=== PATIENT | male | born 1975 | race Hispanic/Latino ===

== ENCOUNTER 2019-04-20 15:56 | Outpatient (CLI) | payer OTHER ==
--- NOTE | 2019-04-20 16:26 | RAD ---
Exam: 3 views lumbar spine HISTORY: Low back pain. COMPARISON: None FINDINGS: 5 lumbar type bodies. Lumbar spine vertebral body height is maintained. No fracture. Disc space heights are preserved. No spondylolisthesis or spondylolysis IMPRESSION: Unremarkable lumbar spine radiograph series
== END 2019-04-20 15:57 | disposition home or self-care (01) ==
LOC: RAD-FRANK 15:56
PROVIDERS: ATTEND Nurse Practitioner Family
DX: M54.5 Low back pain (principal)
CPT/HCPCS: 72100

== ENCOUNTER 2019-05-18 17:03 | Inpatient (IN) | payer SELFPAY ==
[~2019-05-18 17:03] MED LIST: Gadobenate Dimeglumine 529 MG/1 ML (20ML VIAL) ONE; ISOVUE-370 76%-LOCM 1 ML ONE
[2019-05-18 18:10] LABS: #Basophils 0.1 thou/uL (0.0-0.2); #Eosinphils 0.1 thou/uL (0.0-0.7); #Lymphocytes 3.5 thou/uL (1.20-3.40); #Neutrophils 7.5 thou/uL (1.40-6.50); %Lymphocytes 28.5 % (21.0-51.0); %Monocytes 8.4 % (0.0-10.0); %Neutrophils 61.1 % (42.0-75.0); Hemoglobin 13.1 g/dL (14.0-18.0); Mean Corpuscular HGB CONC 33.7 g/dL (32.0-36.0); Mean Corpuscular Hemoglobin 30.4 pg (27.0-31.0); Mean Corpuscular Volume 90.2 fL (78.0-98.0); Mean Platelet Volume 8.4 fL (7.4-10.4); Platelet Count 263 thou/uL (130-400); RBC Distribution Width 13.1 % (11.5-14.5); Red Blood Cell (RBC) Count 4.31 mill/uL (4.70-6.10); White Blood Cell (WBC) Count 12.2 thou/uL (4.8-10.8)
[2019-05-18 18:34] LABS: ALT (SGPT) 12 U/L (8-55); AST (SGOT) 20 U/L (5-34); Albumin 4.1 g/dL (3.5-5.0); Alkaline Phosphatase 80 U/L (40-150); Anion Gap 15 mmol/L (10-20); BUN (Urea Nitrogen) 18 mg/dL (8.9-20.6); Bilirubin, Total 0.4 mg/dL (0.2-1.2); Calc. Creatinine Clearance 0 mL/min (70-130); Calcium 10.3 mg/dL (7.8-10.44); Carbon Dioxide 27 mmol/L (22-29); Chloride 96 mmol/L (98-107); Estimated GFR-MDRD 55; Globulin 4.6 g/dL (2.4-3.5); Glucose 120 mg/dL (70-105); Potassium 4.8 mmol/L (3.5-5.1); Protein, Total 8.7 g/dL (6.0-8.3); Sodium 133 mmol/L (136-145)
[2019-05-18] MEDS ORDERED: Ondansetron PF 4 MG/2 ML Vial ONE (19:45)
[2019-05-18] MEDS ORDERED: Morphine 4 MG/ML VIAL ONE (19:45)
[2019-05-18] MEDS ORDERED: Lorazepam 1 MG TAB ONE (20:02)
[2019-05-18] MEDS ORDERED: Lorazepam 2 MG/ML VIAL ONE (20:56)
--- NOTE | 2019-05-18 22:11 | MRI ---
EXAM: MRI lumbar spine without and with contrast HISTORY: Right leg numbness. Evaluate for cauda equina syndrome. COMPARISON: None TECHNIQUE: Multiple planar multisequence MR images were obtained of the lumbar spine without and with contrast. FINDINGS: The vertebral bodies and intervertebral discs demonstrate normal height and alignment without fractur e or subluxation. There is a large mass involving the right aspect of the pelvis which is enhancing measuring at least 13.7 cm in greatest dimension. This mass appears to involve the sacrum and right iliac bone. This mass encases multiple right-sided sacral nerve roots. There appears to be moderate right hydronephros is and hydroureter. Foci of high T2 signal in the bilateral kidneys likely represent cysts. There is edema in the paraspinal muscles in the lower lumbar spine. Edema is also seen in the right gluteal musculature. No marrow signal abnormality is present in the lumbar spine. . The conus medullaris terminates normally at L1/2. T12/L1: No significant posterior bulge or protrusion. No posterior facet arthrosis. No central yosef l stenosis. No neural foraminal stenosis L1/2: No significant posterior bulge or protrusion. No posterior facet arthrosis. No central canal stenosis. No neural foraminal stenosis L2/3: No significant posterior bulge or protrusion. No posterior facet arthrosis. No central canal stenosis. No neural foraminal stenosis L3/4: No significant posterior bulge or protrusion. No posterior facet arthrosis. No central canal stenosis. No neural foraminal stenosis L4/5: No significant posterior bulge or protrusion. No posterior facet arthrosis. No central canal stenosis. No neural foraminal stenosis L5/S1: No significant posterior bulge or protrusion. No posterior facet arthrosis. No central canal stenosis. No neural foraminal stenosis IMPRESSION: Large pelvic mass involves the sacrum and right iliac bone and surrounds multiple right-sided nerve r oots. A CT of the abdomen and pelvis with contrast is recommended for better evaluation. This mass also appears to obstruct the right distal ureter with right-sided hydronephrosis.
--- NOTE | 2019-05-18 22:58 | CT ---
CT Abdomen Pelvis W Con: 05/18/2019 12:00 AM HISTORY: Right lower 70 swelling for 5 months. Incontinence of bowel and bladder. Large right pelvic mass seen on MRI. COMPARISON: MRI lumbar spine 05/18/2019 TECHNIQUE: Multiple contiguous axial images were obtained and a CT of the abdomen and pelvis without IV contrast . Oral contrast was administered. Coronal reformats were performed. FINDINGS: This examination is limited for the evaluation of solid organs and vascular structures due to the lac k of intravenous contrast. Lower Chest: There is a 2.6 cm cavitary mass in the right lower lobe of the lungs. Abdomen: Liver: There are hypodensities in the liver measuring up to 3.4 cm in size suspicious for metastases. Bile Ducts: Normal caliber. Gallbladder: No calcified gallstones. Normal caliber wall. Pancreas: within normal limits. Spleen: within normal limits. Adrenals: within normal limits. Kidneys: Moderate right hydronephrosis. There are bilateral renal cysts measuring up to 4.8 cm in siz e. Pelvis: There is a large mass in the right aspect of the pelvis measuring approximately 13.4 x 9.0 x 11.2 cm in size. This causes displacement of the urinary bladder to the left and is intimately associated with the right posterior lateral wall of the urinary bladder. This also causes displacement of the re ctum to the left. This mass causes erosion into the sacrum with effacement of multiple sacral alae on the right. This mass also appears to extend into the right iliac bone near the sacroiliac joint. Ureters: Moderate right hydroureter. The dilated ureter extends down to the pelvic mass. Bowel: Normal caliber. Mesenteric Lymph Nodes: No enlarged mesenteric lymph nodes. Peritoneum: No ascites or free air, no fluid collection. Vessels: Normal caliber aorta Retroperitoneum: within normal limits. Abdominal Wall: Multiple fat-containing ventral hernias. IMPRESSION: 1. Nonspecific right pelvic mass appears to invade into the sacrum and right iliac bone. There is malu arent metastatic disease to the liver. This mass causes obstruction of the distal right ureter with moderate right hydronephrosis. 2. Right lower lobe cavitary lung mass
[2019-05-19 01:47] LABS: Bilirubin Negative (Negative); Blood, Urine Negative (Negative); Clarity Clear (Clear); Glucose, Urine (Dipstick) 100 mg/dL (Negative); Leukocyte Negative Leu/uL (Negative); Nitrite Negative (Negative); Protein, Urine (Dipstick) 10 mg/dL (Neg-Trace); Urobilinogen Normal mg/dL (Less than 2)
[2019-05-19] MEDS ORDERED: Dextrose 5% in Water 1,000 ML IV PRN (04:49)
[2019-05-19] MEDS ORDERED: Dextrose 50% Abboject 50 ML SYRINGE SLOW IVP PRN (04:49)
[2019-05-19 05:09] VITALS: BMI 33.2
[2019-05-19] MEDS ORDERED: Acetaminophen 325 MG TAB PO PRN ×2 (05:48→12:40)
[2019-05-19] MEDS ORDERED: Ondansetron PF 4 MG/2 ML Vial IVP PRN ×2 (05:48→12:43)
[2019-05-19] MEDS ORDERED: HYDROcodone/Acetaminophen 5/325 mg Tablet PO PRN ×3 (05:48→12:41)
[2019-05-19] MEDS ORDERED: Ondansetron ODT 4 MG TAB SL PRN ×2 (05:48→12:42)
--- NOTE | 2019-05-19 06:00 | HP ---
CHIEF COMPLAINT: Difficulty with voiding and right lower extremity weakness. HISTORY OF PRESENT ILLNESS: The patient is a 44-year-old male with a history of what sounds like testicular cancer greater than 15 years ago. He was treated at [facility]. At that time, the patient underwent a large surgery with an incision extending from the xiphoid down to the pelvis. He also reported an orchiectomy. He presented to the emergency room today reporting pain that started about 5 months ago on his right buttocks and extending down his leg. He has had progression of that to the point where he no longer can move his right lower extremity except at the hip. He denies any numbness however. He also over the past 3 weeks has had difficulty with bowel and bladder incontinence and difficulty completely voiding. The patient does report about a 40-pound weight loss over the last 6 months or so, but he says he was diagnosed with diabetes and has changed his diet and believes the weight loss was more intentional than unintentional. REVIEW OF SYSTEMS: All systems reviewed, all pertinent positives and negatives noted in history of present illness. PAST MEDICAL HISTORY: Hypertension, diabetes, the above-mentioned testicular cancer with chemotherapy for 1 year. PAST SURGICAL HISTORY: Orchiectomy and some type of tumor debulking of the abdomen at [facility] greater than 15 years ago. FAMILY HISTORY: His father is alive and apparently well. His mother had some type of female cancer. SOCIAL HISTORY: The patient says he quit drinking 6 months ago when he was told he had diabetes. Without having any advice, he decided to start smoking about 3 weeks ago. Denies drugs. He is single. He is full code and his sister would be his surrogate decision maker. ALLERGIES: NONE. CURRENT MEDICATIONS: None. PHYSICAL EXAMINATION: VITAL SIGNS: Blood pressure 138/74, pulse 91, respirations 18, O2 saturation 98% on room air. GENERAL APPEARANCE: Age-appropriate male, he is in no distress. He is awake, alert, oriented, pleasant, cooperative. HEENT: PERRL. No OP lesions. TMs are normal. NECK: Supple and symmetric. No lymphadenopathy, JVD, or carotid bruits. HEART: Regular rate and rhythm without murmurs, gallops, or rubs. LUNGS: Clear to auscultation bilaterally. ABDOMEN: Well-healed midline incisional scar. Soft, nontender, and nondistended. Positive bowel sounds. EXTREMITIES: The patient has no cyanosis, clubbing, or edema. NEUROLOGIC: The patient has normal sensation in lower extremities. He has no ability to move his right toes, foot, ankle, or knee. He can flex the leg a bit at the hip. LABORATORY DATA: White count 12.2, hemoglobin 13.1, platelets 263. Sodium 133, potassium 4.8, chloride 96, CO2 27, BUN 18, creatinine 1.4, glucose 120, AST 20, ALT 12, serum protein is 8.7, albumin 4.1. MRI of the lumbar spine shows large pelvic mass involving the sacrum and right iliac bone and surrounding multiple right-sided nerve roots. CT abdomen and pelvis shows nonspecific right pelvic mass, which is large and invades into the sacrum and right iliac bone with apparent metastatic disease to the liver. The pelvic mass causes obstruction to the distal right ureter and moderate right hydronephrosis, and there is also a right lower lobe cavitary lung mass. IMPRESSION AND PLAN: 1. Pelvic mass, very suspicious for malignancy with likely metastases to the liver and lung in a patient with a prior history of what sounds like testicular cancer per the patient's report. We will need to obtain a biopsy somehow. The case was discussed with General Surgery and Neurosurgery in the Emergency Department and they did not feel there were specific needs for their intervention. The case will need to be discussed with Interventional Radiology to determine if they can obtain a biopsy. We will also go ahead and consult Oncology given his history in hopes that we can help sort out what his prior diagnoses were. 2. 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 3. Urinary incontinence and urinary retention. Yu catheter has been placed. We will leave that in for now. 4. Acute kidney injury. I do not have prior labs on this patient for comparison, but suspect his creatinine is elevated because of the hydroureter and the pelvic mass affecting ability to pass the urine. 5. Right hydroureter. The right ureter is completely encased in this tumor in the pelvis causing obstruction. 6. History of diabetes. We will continue Accu-Cheks and sliding scale insulin. Job ID: [id number]
[2019-05-19] MEDS ORDERED: Enoxaparin Sodium 40 MG/0.4 ML SYRINGE SC SCH (09:00)
[2019-05-19] MEDS: Sodium Chloride 0.9% 1,000 ML IV SCH (12:53)
[2019-05-19] MEDS: Morphine 4 MG/ML VIAL SLOW IVP PRN ×2 (12:54→21:20)
[2019-05-19 13:03] LABS: PTT 30.9 SEC (22.9-36.1); Prothrombin Time 13.6 SEC (12.0-14.7)
[2019-05-19] MEDS ORDERED: Midazolam HCl 2 mg/2 ml Vial ONE (13:08)
[2019-05-19] MEDS ORDERED: Sodium Bicarbonate 2.5 MEQ/5 ML VIAL ONE (13:08)
[2019-05-19] MEDS ORDERED: Fentanyl 100 MCG/2 ML VIAL ONE (13:08)
--- NOTE | 2019-05-19 15:46 | CT ---
PROCEDURE: CT GUIDED BIOPSY MASS RIGHT PELVIS 05/19/19 INDICATION: Large mass in the right pelvis identified on CT of 05/18/19. There is a prior history of testicular can cer in this patient. A percutaneous guided biopsy was requested for diagnosis. FINDINGS: Two separate 2.3 cm length 18 gauge core biopsy samples were obtained through the mass. The needle wa s positioned with CT guidance from an anterior approach. Pathologist was present at bed side and confirmed adequate tissue. PROCEDURE NOTE: Patient was placed supine on the CT table. Tomograms were obtained. An anterior approach was selected anterolateral aspect of the right pelvis. The skin entry site was marked. The area prepped and drape d in a sterile manner. Local anesthesia was administered with lidocaine. A 17 gauge guide needle wit h trocar in place was introduced under CT guidance. The needle was directed into the anterior margin of the mass as confirmed with CT. Trocar removed and 18 gauge biopsy gun attached. A 2.3 cm length co re tissue specimen was obtained and given to pathologist. A second 2.3 cm length specimen was obtaine d and placed in formalin. The needle was removed. Postprocedure CT showed no evidence of hematoma. The patient tolerated the pr ocedure well with no problems or complications. POS: OFF
[2019-05-19] MEDS: HYDROcodone/Acetaminophen 5/325 mg Tablet PO PRN (16:19)
--- NOTE | 2019-05-19 18:10 | PDOC.PN ---
- Subjective Encounter Start Date: 05/19/19 Encounter Start Time: 11:30 Subjective: pt up in bed no complains -: explained to pt about ct findings and possible diagnosis - Objective Resuscitation Status - Order Detail: 05/19/19 04:47 Resuscitation Status Routine Resuscitation Status: FULL: Full Resuscitation Vital Signs & Weight: Vital Signs (12 hours) Temp Pulse Resp BP Pulse Ox 05/19/19 15:28 98.3 F 73 16 131/86 99 05/19/19 11:10 98.2 F 75 16 125/80 98 05/19/19 07:51 97.9 F 72 16 130/86 98 Weight Weight 212 lb 1.355 oz I&O: 05/18/19 05/19/19 05/20/19 06:59 06:59 06:59 Intake Total 50 Output Total 800 Balance -750 Result Diagrams: 05/18/19 18:02 05/18/19 18:02 Additional Labs: Accuchecks 05/19/19 05/19/19 05/19/19 15:56 11:46 06:03 POC Glucose 121 H 115 H 181 H Phys Exam - Physical Examination Neck: no nodes, no JVD, supple, full ROM Respiratory: no wheezing, no rales, no rhonchi, wheezing present, clear to auscultation bilateral Cardiovascular: RRR, no significant murmur, no rub, gallop, irregular Gastrointestinal: soft, non-tender, no distention, positive bowel sounds weakness to his right lower ext Dx/Plan (1) Pelvic mass Code(s): R19.00 - INTRA-ABD AND PELVIC SWELLING, MASS AND LUMP, UNSP SITE Status: Acute (2) HIEU (acute kidney injury) Code(s): N17.9 - ACUTE KIDNEY FAILURE, UNSPECIFIED Status: Acute (3) Hydronephrosis of right kidney Code(s): N13.30 - UNSPECIFIED HYDRONEPHROSIS Status: Acute (4) Right leg weakness Code(s): R29.898 - OT SYMPTOMS AND SIGNS INVOLVING THE MUSCULOSKELETAL SYSTEM Status: Acute - Plan spoke to Ir for biopsy. pt continues to have pain to his right lower ext -: will consult urology. will also talk with oncology -: [facility] -: All of the ct findings were discussed with pt and sister * . Review of Systems - Review of Systems Respiratory: negative: Cough, Dry, Shortness of Breath, Hemoptysis, SOB with Excertion, Pleuritic Pain, Sputum, Wheezing Cardiovascular: negative: chest pain, palpitations, orthopnea, paroxysmal nocturnal dyspnea, edema, light headedness, other - Medications/Allergies Allergies/Adverse Reactions: Allergies Allergy/AdvReac Type Severity Reaction Status Date / Time No Known Drug Allergies Allergy Verified 05/19/19 05:45 Medications: Current Medications Acetaminophen (Tylenol) 650 mg PO Q4H PRN PRN Reason: Fever or Mild Pain Hydrocodone Bitart/Acetaminophen (Kremlin 5/325) 1 tab PO Q6H PRN PRN Reason: Pain (1-4) Hydrocodone Bitart/Acetaminophen (Kremlin 5/325) 2 tab PO Q6H PRN PRN Reason: Pain (5-8) Last Admin: 05/19/19 16:19 Dose: 2 tab Dextrose/Water (Dextrose 50%) 25 gm SLOW IVP PRN PRN PRN Reason: Hypoglycemia Glucagon (Glucagon) 1 mg IM PRN PRN PRN Reason: Hypoglycemia Heparin Sodium (Porcine) (Heparin) 5,000 units SC TID [facility] Stop: 05/20/19 23:59 Dextrose/Water (D5w) 1,000 mls @ 0 mls/hr IV .Q0M PRN PRN Reason: Hypoglycemia Sodium Chloride (Normal Saline 0.9%) 1,000 mls @ 75 mls/hr IV .[id number] [facility] Last Admin: 05/19/19 12:53 Dose: 1,000 mls Insulin Human Lispro (Humalog) 0 units SC .MILD SLIDING SCALE PRN PRN Reason: Mild Correctional Scale Morphine Sulfate (Morphine) 4 mg SLOW IVP Q6H PRN PRN Reason: Severe Breakthrough Pain (7-10 Last Admin: 05/19/19 12:54 Dose: 4 mg Ondansetron HCl (Zofran Odt) 4 mg SL Q6H PRN PRN Reason: Nausea/Vomiting Ondansetron HCl (Zofran) 4 mg IVP Q6H PRN PRN Reason: Nausea/Vomiting Polyethylene Glycol (Miralax) 17 gm PO DAILY PRN PRN Reason: Constipation Senna (Senokot) 2 tab PO DAILY PRN PRN Reason: Constipation Sodium Chloride (Flush - Normal Saline) 10 ml IVF PRN PRN PRN Reason: Saline Flush
--- NOTE | 2019-05-19 19:00 | CON ---
DATE OF CONSULTATION: 05/19/2019 CONSULTING: [facility]. CONSULTED: Dr. Syed. REASON FOR CONSULTATION: Hydronephrosis. HISTORY OF PRESENT ILLNESS: Mr. Acevedo is a 44-year-old male, who was admitted to the hospital due to leg and buttock pain on the right side. He states this pain has been going on for approximately 2 to 3 months now. He initially thought it was sciatica, but due to the pain being more in his buttock and thigh rather than in his back and with progressive worsening of symptoms along with worsening bladder symptoms, he came into the emergency room. He was noted to have a mass in his pelvis on CT scan with hydronephrosis on the right as well as multiple lesions throughout the abdomen and lung consistent with metastatic cancer. His history is significant for testicular cancer 18 years ago. He underwent a radical orchiectomy on the right in [place] by urologist, which he does not remember. He subsequently went down to [facility], where he underwent a retroperitoneal lymph node dissection via a median laparotomy. Postoperatively, he received approximately one year of chemotherapy, but apparently did not do any surveillance afterwards. He did not follow up at [facility] and did not seem to have any problems until recently. After being admitted with the current masses, he did undergo a soft tissue biopsy which was done in Interventional Radiology today. The results are currently still pending from this. On my discussion with the patient currently, he states that he has been having a lot of erratic urination. He has urgency and frequency and poor stream. He has not had any blood in his urine. He denies any flank pain, but has had significant leg pain. He is having difficulty with his bowel movements, but also has not eaten in 24 hours. He denies any fevers or chills. He states he has lost some weight. He denies any chest pain or shortness of breath. He denies any leg swelling. ALLERGIES: NONE. CURRENT HOME MEDICATIONS: None. PAST MEDICAL HISTORY: 1. Hypertension. 2. Diabetes. 3. Testicular cancer. PAST SURGICAL HISTORY: 1. Orchiectomy. 2. Retroperitoneal lymph node dissection in [facility]. FAMILY HISTORY: No significant history of genitourinary cancers. SOCIAL HISTORY: The patient drank alcohol significantly, but quit six months ago when he was found that he had diabetes. He recently started smoking tobacco. Denies illicit drug use. He is single, but stays with his sister, who is a surrogate decision maker. REVIEW OF SYSTEMS: A 12-point review of systems reviewed, otherwise negative other than what was commented on the HPI. PHYSICAL EXAMINATION: VITAL SIGNS: Temperature 98.3, pulse 73, respirations are 16, blood pressure 131/86, and saturation 99% on room air. GENERAL: No apparent distress, communicating, and alert, appears stated age, well nourished, well developed. HEENT: Normocephalic, atraumatic. Pupils are symmetric and round. Trachea midline. CARDIOVASCULAR: Regular rate and rhythm. Normal S1 and S2, symmetric pulses. CHEST: No increased work of breathing. Symmetric expansion. LUNGS: Clear anteriorly. ABDOMEN: Soft, nondistended. Mildly tender to palpation in the right lower quadrant. There is a palpable mass in the right lower quadrant. No obvious organomegaly. No hernias. A well-healed midline incision. GENITOURINARY: Yu catheter in place, draining clear yellow urine. Penis is otherwise nonfocal. Scrotum is nonfocal. EXTREMITIES: No clubbing, cyanosis, or edema. MUSCULOSKELETAL: No joint deformities or joint erythema noted. Decreased range of motion and weakness on the right leg. Left leg appears more normal. Upper extremities are otherwise normal. No inflammation in the hands. NEUROLOGIC: Cranial nerves 2 through 12 grossly intact. There is significant weakness and paresthesias of the right buttock and right leg. Remainder of neurological system is otherwise unremarkable. SKIN: Warm and dry. No rashes or lesions. Good turgor. LYMPHATIC: No palpable lymph nodes in the cervical, axillary, or inguinal regions. PSYCHIATRIC: Alert and oriented x3. Appropriate mood and affect. LABORATORY DATA: On laboratory evaluation, the full set of labs are in the [employer] system, which I have reviewed. Of note, the patient's white count is 12.2 with a hemoglobin of 13.1. INR is 1. Creatinine is 1.40 with a sodium of 133, glucose is 120. On CT done May 18, demonstrates nonspecific right pelvic mass which appears to invade into the sacrum and right iliac bone with possible nerve involvement. There is metastatic disease to the liver as well as a cavitary lung mass in the right lower lobe. There is moderate right hydronephrosis in which the distal ureter is completely encased in the mass. I have reviewed these images myself. ASSESSMENT AND PLAN: A 44-year-old male with multiple masses in the abdomen, liver, and in the lung consistent with likely metastatic disease. The cavitary lung lesion may be tuberculosis or another lesion or may be related to the metastatic cancer that is present. The highest likelihood is that he has had a recurrent testicular cancer, although other cancers are also possible. We are awaiting the soft tissue biopsy specimens to make final determination. I would recommend continuation of the Yu catheter given the patient's severe urinary symptoms and difficulty voiding. Regarding his hydronephrosis and his elevated creatinine, the patient will likely require chemotherapy for treatment of his cancer and I would recommend maximization of GFR. Given the complete encasement of the ureter, I do not think a ureteral stent will be successful in this patient. I would highly recommend a nephrostomy tube is the best option. I will have the patient obtain a right nephrostomy tube on Friday as tomorrow is May 20 and I do not feel that this is emergent. In addition, the patient is extremely high risk for DVT in the right leg. I would recommend that the patient start on heparin prophylaxis. With his creatinine normalized, he can be changed over to Lovenox. I will start heparin 5000 units subcu t.i.d. with instructions to hold the heparin prior to his nephrostomy tube placement. I will continue to follow along and make recommendations on this patient, but final determination will largely be based off the biopsy results. Long-term, the patient will likely need to go home with his Yu catheter and nephrostomy tube until he can start on chemotherapy. If there is sufficient shrinkage of the mass, he may be able to convert to ureteral stent or have the tubes taken out entirely. The urinary problems will probably self resolve once the pelvic mass shrinks sufficiently in size either in response to radiation or chemo depending on what type of tumor this is. Job ID: [id number]
[2019-05-19] MEDS: Heparin 5,000 UNITS/ML VIAL SC SCH (21:10)
[2019-05-19] MEDS: HumaLOG 300 UNITS/3 ML VIAL SC PRN (21:14)
[2019-05-20] MEDS: HYDROcodone/Acetaminophen 5/325 mg Tablet PO PRN ×4 (03:18→20:38)
[2019-05-20] MEDS: Sodium Chloride 0.9% 1,000 ML IV SCH ×2 (03:19→16:42)
[2019-05-20] MEDS: Morphine 4 MG/ML VIAL SLOW IVP PRN ×3 (04:23→18:02)
[2019-05-20 06:23] LABS: #Basophils 0.1 thou/uL (0.0-0.2); #Eosinphils 0.2 thou/uL (0.0-0.7); #Lymphocytes 2.1 thou/uL (1.20-3.40); #Monocytes 0.8 thou/uL (0.11-0.59); #Neutrophils 5.7 thou/uL (1.40-6.50); %Basophils 0.8 % (0.0-1.0); %Eosinophils 1.8 % (0.0-10.0); %Lymphocytes 23.5 % (21.0-51.0); %Monocytes 9.2 % (0.0-10.0); %Neutrophils 64.7 % (42.0-75.0); Hemoglobin 11.5 g/dL (14.0-18.0); Mean Corpuscular HGB CONC 32.3 g/dL (32.0-36.0); Mean Corpuscular Hemoglobin 29.6 pg (27.0-31.0); Mean Corpuscular Volume 91.6 fL (78.0-98.0); Mean Platelet Volume 8.8 fL (7.4-10.4); Platelet Count 218 thou/uL (130-400); RBC Distribution Width 13.2 % (11.5-14.5); White Blood Cell (WBC) Count 8.9 thou/uL (4.8-10.8)
[2019-05-20 06:36] LABS: Anion Gap 11 mmol/L (10-20); BUN (Urea Nitrogen) 13 mg/dL (8.9-20.6); Calc. Creatinine Clearance 122 mL/min (70-130); Calcium 9.7 mg/dL (7.8-10.44); Carbon Dioxide 30 mmol/L (22-29); Chloride 100 mmol/L (98-107); Estimated GFR-MDRD 78; Glucose 114 mg/dL (70-105); Potassium 4.1 mmol/L (3.5-5.1); Sodium 137 mmol/L (136-145)
[2019-05-20] MEDS: Polyethylene Glycol 3350 17 GM Packet PO PRN (08:55)
[2019-05-20] MEDS: Senokot 8.6 MG TAB PO PRN (08:55)
[2019-05-20] MEDS: Heparin 5,000 UNITS/ML VIAL SC SCH ×3 (08:56→20:40)
[2019-05-20] MEDS: HumaLOG 300 UNITS/3 ML VIAL SC PRN ×2 (12:12→22:16)
--- NOTE | 2019-05-20 17:02 | PDOC.PN ---
- Subjective Encounter Start Date: 05/20/19 Encounter Start Time: 10:30 Subjective: pt up in bed still has pain to his righ leg - Objective Resuscitation Status - Order Detail: 05/19/19 04:47 Resuscitation Status Routine Resuscitation Status: FULL: Full Resuscitation Vital Signs & Weight: Vital Signs (12 hours) Temp Pulse Resp BP BP Pulse Ox 05/20/19 15:58 98.1 F 71 16 144/80 H 97 05/20/19 10:51 97.6 F 80 16 155/82 H 98 05/20/19 07:39 98 F 73 16 132/79 98 Weight Weight 213 lb I&O: 05/19/19 05/20/19 05/21/19 06:59 06:59 06:59 Intake Total 50 2425 Output Total 800 1525 Balance -750 900 Result Diagrams: 05/20/19 05:53 05/20/19 05:53 Additional Labs: Accuchecks 05/20/19 05/20/19 05/20/19 15:58 10:52 05:22 POC Glucose 142 H 205 H 118 H 05/19/19 20:18 POC Glucose 217 H Phys Exam - Physical Examination Neck: no nodes, no JVD, supple, full ROM Respiratory: no wheezing, no rales, no rhonchi, wheezing present, clear to auscultation bilateral Cardiovascular: RRR, no significant murmur, no rub, gallop, irregular Gastrointestinal: soft, non-tender, no distention, positive bowel sounds right side lower ext weakness Dx/Plan (1) HIEU (acute kidney injury) Code(s): N17.9 - ACUTE KIDNEY FAILURE, UNSPECIFIED Status: Acute (2) Hydronephrosis of right kidney Code(s): N13.30 - UNSPECIFIED HYDRONEPHROSIS Status: Acute (3) Right leg weakness Code(s): R29.898 - OTH SYMPTOMS AND SIGNS INVOLVING THE MUSCULOSKELETAL SYSTEM Status: Acute (4) Pelvic mass Code(s): R19.00 - INTRA-ABD AND PELVIC SWELLING, MASS AND LUMP, UNSP SITE Status: Acute - Plan s/p pelvic mass biopsy -: will check AFP, ldh and beta hcg -: pt will get nephrostomy tube in am * . Review of Systems - Review of Systems Respiratory: negative: Cough, Dry, Shortness of Breath, Hemoptysis, SOB with Excertion, Pleuritic Pain, Sputum, Wheezing Cardiovascular: negative: chest pain, palpitations, orthopnea, paroxysmal nocturnal dyspnea, edema, light headedness, other - Medications/Allergies Allergies/Adverse Reactions: Allergies Allergy/AdvReac Type Severity Reaction Status Date / Time No Known Drug Allergies Allergy Verified 05/19/19 05:45 Medications: Current Medications Acetaminophen (Tylenol) 650 mg PO Q4H PRN PRN Reason: Fever or Mild Pain Hydrocodone Bitart/Acetaminophen ([place] 5/325) 1 tab PO Q6H PRN PRN Reason: Pain (1-4) Hydrocodone Bitart/Acetaminophen ([place] 5/325) 2 tab PO Q6H PRN PRN Reason: Pain (5-8) Last Admin: 05/20/19 14:50 Dose: 2 tab Dextrose/Water (Dextrose 50%) 25 gm SLOW IVP PRN PRN PRN Reason: Hypoglycemia Glucagon (Glucagon) 1 mg IM PRN PRN PRN Reason: Hypoglycemia Heparin Sodium (Porcine) (Heparin) 5,000 units SC TID [facility] Stop: 05/20/19 23:59 Last Admin: 05/20/19 14:52 Dose: 5,000 units Dextrose/Water (D5w) 1,000 mls @ 0 mls/hr IV .Q0M PRN PRN Reason: Hypoglycemia Sodium Chloride (Normal Saline 0.9%) 1,000 mls @ 75 mls/hr IV .[id number] [facility] Last Admin: 05/20/19 16:42 Dose: 1,000 mls Insulin Human Lispro (Humalog) 0 units SC .MILD SLIDING SCALE PRN PRN Reason: Mild Correctional Scale Last Admin: 05/20/19 12:12 Dose: 2 unit Morphine Sulfate (Morphine) 4 mg SLOW IVP Q6H PRN PRN Reason: Severe Breakthrough Pain (7-10 Last Admin: 05/20/19 12:12 Dose: 4 mg Ondansetron HCl (Zofran Odt) 4 mg SL Q6H PRN PRN Reason: Nausea/Vomiting Ondansetron HCl (Zofran) 4 mg IVP Q6H PRN PRN Reason: Nausea/Vomiting Polyethylene Glycol (Miralax) 17 gm PO DAILY PRN PRN Reason: Constipation Last Admin: 05/20/19 08:55 Dose: 17 gm Senna (Senokot) 2 tab PO DAILY PRN PRN Reason: Constipation Last Admin: 05/20/19 08:55 Dose: 2 tab Sodium Chloride (Flush - Normal Saline) 10 ml IVF PRN PRN PRN Reason: Saline Flush Last Admin: 05/20/19 08:56 Dose: 10 ml
[2019-05-21] MEDS: Morphine 4 MG/ML VIAL SLOW IVP PRN ×3 (00:46→19:42)
[2019-05-21] MEDS: Sodium Chloride 0.9% 1,000 ML IV SCH ×3 (05:15→19:42)
--- NOTE | 2019-05-21 14:30 | PDOC.PN ---
- Subjective Encounter Start Date: 05/21/19 Encounter Start Time: 11:30 Subjective: pt up in bed complains of pain to his righ leg - Objective Resuscitation Status - Order Detail: 05/19/19 04:47 Resuscitation Status Routine Resuscitation Status: FULL: Full Resuscitation Vital Signs & Weight: Vital Signs (12 hours) Temp Pulse Resp BP Pulse Ox 05/21/19 11:09 98.2 F 72 16 151/81 H 97 05/21/19 08:00 98 F 76 20 157/90 H 96 05/21/19 03:51 97.9 F 66 18 143/83 H 98 Weight Weight 212 lb 3.119 oz I&O: 05/20/19 05/21/19 05/22/19 06:59 06:59 06:59 Intake Total 2425 3300 Output Total 1525 1900 Balance 900 1400 Result Diagrams: 05/20/19 05:53 05/20/19 05:53 Additional Labs: Accuchecks 05/21/19 05/21/19 05/20/19 11:10 05:28 21:40 POC Glucose 138 H 123 H 161 H 05/20/19 15:58 POC Glucose 142 H Phys Exam - Physical Examination Neck: no nodes, no JVD, supple, full ROM Respiratory: no wheezing, no rales, no rhonchi, wheezing present, clear to auscultation bilateral Cardiovascular: RRR, no significant murmur, no rub, gallop, irregular Gastrointestinal: soft, non-tender, no distention, positive bowel sounds Musculoskeletal: no edema, pulses present, edema present right leg weakness Dx/Plan (1) HIEU (acute kidney injury) Code(s): N17.9 - ACUTE KIDNEY FAILURE, UNSPECIFIED Status: Acute (2) Hydronephrosis of right kidney Code(s): N13.30 - UNSPECIFIED HYDRONEPHROSIS Status: Acute (3) Right leg weakness Code(s): R29.898 - OTH SYMPTOMS AND SIGNS INVOLVING THE MUSCULOSKELETAL SYSTEM Status: Acute (4) Pelvic mass Code(s): R19.00 - INTRA-ABD AND PELVIC SWELLING, MASS AND LUMP, UNSP SITE Status: Acute - Plan all testicular tumor markers negative -: pending biopsy results -: pt undergoing nephrostomy tube placement today * . Review of Systems - Review of Systems Respiratory: negative: Cough, Dry, Shortness of Breath, Hemoptysis, SOB with Excertion, Pleuritic Pain, Sputum, Wheezing Genitourinary: negative: Dysuria, Frequency, Incontinence, Hematuria, Retention , Other - Medications/Allergies Allergies/Adverse Reactions: Allergies Allergy/AdvReac Type Severity Reaction Status Date / Time No Known Drug Allergies Allergy Verified 05/19/19 05:45 Medications: Current Medications Acetaminophen (Tylenol) 650 mg PO Q4H PRN PRN Reason: Fever or Mild Pain Hydrocodone Bitart/Acetaminophen ([place] 5/325) 1 tab PO Q6H PRN PRN Reason: Pain (1-4) Hydrocodone Bitart/Acetaminophen ([place] 5/325) 2 tab PO Q6H PRN PRN Reason: Pain (5-8) Last Admin: 05/20/19 20:38 Dose: 2 tab Dextrose/Water (Dextrose 50%) 25 gm SLOW IVP PRN PRN PRN Reason: Hypoglycemia Glucagon (Glucagon) 1 mg IM PRN PRN PRN Reason: Hypoglycemia Dextrose/Water (D5w) 1,000 mls @ 0 mls/hr IV .Q0M PRN PRN Reason: Hypoglycemia Sodium Chloride (Normal Saline 0.9%) 1,000 mls @ 75 mls/hr IV .[id number] Last Admin: 05/21/19 05:15 Dose: 1,000 mls Insulin Human Lispro (Humalog) 0 units SC .MILD SLIDING SCALE PRN PRN Reason: Mild Correctional Scale Last Admin: 05/20/19 22:16 Dose: 2 unit Morphine Sulfate (Morphine) 4 mg SLOW IVP Q6H PRN PRN Reason: Severe Breakthrough Pain (7-10 Last Admin: 05/21/19 13:12 Dose: 4 mg Ondansetron HCl (Zofran Odt) 4 mg SL Q6H PRN PRN Reason: Nausea/Vomiting Ondansetron HCl (Zofran) 4 mg IVP Q6H PRN PRN Reason: Nausea/Vomiting Polyethylene Glycol (Miralax) 17 gm PO DAILY PRN PRN Reason: Constipation Last Admin: 05/20/19 08:55 Dose: 17 gm Senna (Senokot) 2 tab PO DAILY PRN PRN Reason: Constipation Last Admin: 05/20/19 08:55 Dose: 2 tab Sodium Chloride (Flush - Normal Saline) 10 ml IVF PRN PRN PRN Reason: Saline Flush Last Admin: 05/20/19 08:56 Dose: 10 ml
[2019-05-21] MEDS ORDERED: Midazolam HCl 2 mg/2 ml Vial ONE (14:45)
[2019-05-21] MEDS ORDERED: Fentanyl 100 MCG/2 ML VIAL ONE (14:46)
--- NOTE | 2019-05-21 16:17 | PRG ---
DATE OF SERVICE: 05/21/2019 SUBJECTIVE: The patient is still having flank pain as well as pain in his right side and right leg secondary to a large recurrent mass. No other new complaints or fevers. OBJECTIVE: VITAL SIGNS: Temperature 98.2, pulse 72, respirations are 16, blood pressure 151/81, and saturation 97% on room air. GENERAL: No apparent distress, communicative and alert. CARDIOVASCULAR: Regular rate and rhythm. ABDOMEN: Soft, nontender, and nondistended. Palpable mass. : Yu catheter in place with clear yellow urine. EXTREMITIES: No significant clubbing, cyanosis, or edema. LABORATORY EVALUATION: No new labs today. Biopsy results from May 19 of the large tissue mass demonstrates high-grade neuroendocrine carcinoma. The exact source cannot be determined. 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 He is scheduled to undergo a nephrostomy tube, which is being planned for today. I have spoken with Dr. Lomeli, and he has reviewed the images and felt that he would be able to perform a nephrostomy tube placement. I would recommend Medical Oncology be consulted for further direction and planning for this patient's current condition. Dr. Martinez will be here over the weekend to cover me in my stead. I will be back on Friday. If the patient is still in the hospital, I will resume care. Otherwise, if the patient is discharged, I will see the patient back in the office for followup. Job ID: [id number]
--- NOTE | 2019-05-21 16:56 | SPC ---
EXAM: [facility] [place] [facility] [place] PROVIDED CLINICAL HISTORY: Right ureteral obstruction secondary to right pelvic mass resulting in severe right hydronephrosis an d hydroureter. COMPARISON: CT abdomen on 05/18/2019 TECHNIQUE: The procedure including the risks and complications were explained to the patient, and informed conse nt was obtained. Approximately 1 g of Rocephin was administered intravenously. Conscious sedation with the intravenous administration of fentanyl and Versed was utilized during the procedure. Patient was monitored for approximately 30 minutes during administration of conscious sedation. Limited sonographic evaluation right kidney was performed. An area was marked, and the area was then meticulously prepped and draped in usual sterile fashion. The skin and subcutaneous tissues were infiltrated with buffered 1% lidocaine for local anesthesia. Utilizing concurrent real time ultrasoun d guidance, an upper pole posterior dilated renal calyx was accessed with a return of clear urine. Urine was aspirated, and then contrast was injected to confirm placement in the collecting system. The needle was exchanged over a 0.018 inch guidewire for a 6 [place] AccuStick sheath with stiff inner cannula and dilator. The sheath was positioned in the proximal right ureter. The inner dilator and stiff inner cannula as well as guidewire were removed. Contrast injection confirms placement in the c ollecting system. The introducer sheath was exchanged over a 0.035 inch Amplatz guidewire for an 8 [place]ian tissue dilato r followed by placement of an 8 [place] nephrostomy tube. The distal portion of the nephrostomy tube was coiled within the renal pelvis. Urine was again aspirated, and contrast was injected confirming p lacement in the right renal pelvis. The catheter was sutured in place utilizing 2-0 Ethilon suture material, and a dry sterile dressing was placed. Catheter was placed to gravity drainage. The patient tolerated the procedure well and without immediate complication. Patient's vital signs re mained stable during the procedure as well as immediately post procedure. Fluoroscopy: Total fluoroscopy time was 2.1 minutes with total dose of 23,395 mGy centimeter squared IMPRESSION: 1. Severe right hydronephrosis. 2. Technically successful percutaneous right nephrostomy tube placement.
[2019-05-21] MEDS: HYDROcodone/Acetaminophen 5/325 mg Tablet PO PRN (17:37)
[2019-05-21] MEDS: cefTRIAXone\\ROCEPHIN 1 GM in Sodium Chloride 0.9% 100 ML IVPB SCH ×2 (17:44→17:48)
[2019-05-22] MEDS: Morphine 4 MG/ML VIAL SLOW IVP PRN ×4 (02:01→20:16)
[2019-05-22] MEDS: HYDROcodone/Acetaminophen 5/325 mg Tablet PO PRN ×2 (11:33→18:37)
--- NOTE | 2019-05-22 14:17 | CON ---
DATE OF CONSULTATION: 05/22/2019 REASON FOR CONSULTATION: High-grade neuroendocrine carcinoma. HISTORY OF PRESENT ILLNESS: The patient is a 44-year-old man, admitted for progressive weakness and pain in the right lower extremity. Imaging on admission was significantly abnormal and included a CT scan of the abdomen and pelvis, which showed a large soft tissue mass within the right pelvis measuring 13.4 x 9.0 x 11.2 cm. It displaced the urinary bladder and obstructed the right kidney. The mass eroded the sacrum and also seen to involve the right iliac bone. There was right hydroureter. The liver also showed multiple hepatic metastases measuring up to 3.4 cm in size. Finally, there was a 2.6 cm cavitary mass in the right lower lobe. On May 19, the patient underwent a CT-guided biopsy of the soft tissue mass, and final pathology confirmed a high-grade neuroendocrine carcinoma. Of significance, the patient has history of testicular cancer treated at [facility] greater than 15 years ago with surgery as well as postoperative chemotherapy. Details are unclear, and source documents are unavailable for review. However, the current biopsy does not show a recurrent testicular malignancy. He has lost 30 to 40 pounds in the past several months, but a portion of this has been voluntary as he was recently diagnosed with diabetes mellitus. At this time, I am asked to provide further management and recommendations regarding the malignancy. PAST MEDICAL HISTORY: ALLERGIES: NONE. MEDICATIONS: 1. Hydrocodone and acetaminophen. 2. Insulin on sliding scale. 3. Zofran p.r.n. 4. MiraLAX. MEDICAL ILLNESSES: There is a history of diabetes mellitus and possible hypertension as well as the previously noted testicular malignancy in the remote past. SURGERIES: The patient has undergone orchiectomy and probably a retroperitoneal lymph node dissection at [facility] approximately 18 years ago. FAMILY HISTORY: His mother had some type of malignancy, type unknown. SOCIAL HISTORY: He, curiously, started smoking only within the past month, but has no prior history of significant tobacco use. He does not drink excessively at this time. 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 His sister and multiple family members are present during the interview today. REVIEW OF SYSTEMS: Except as mentioned in the history of present illness, he has no significant cardiopulmonary, GI, , musculoskeletal, or neurological complaints. PHYSICAL EXAMINATION: VITAL SIGNS: Temperature 98.4, pulse 78 and regular, respirations 16, blood pressure 162/89. GENERAL: The patient is a well-developed and well-nourished man, in no acute distress. He is lying flat without complaints. As mentions, multiple family members are present. HEENT: The extraocular movements are intact, and the pupils are equal, round, and reactive to light. NECK: Supple. LUNGS: Clear. CARDIOVASCULAR: Regular rate and rhythm without murmur, rub, gallop, or click. ABDOMEN: No tenderness, organomegaly, masses, bruits, or ascites. EXTREMITIES: No clubbing, cyanosis, or edema. SKIN: Normal. LYMPH: No adenopathy. MUSCULOSKELETAL: No active arthritis. NEUROLOGIC: No focal findings except for proximal right lower extremity weakness. The cranial nerves 2 through 12 are grossly intact. LABORATORY DATA: White blood cell count 8.9, hemoglobin 11.5, and platelet count 218,000. Chemistries show sodium 133, potassium 4.8, chloride 96, carbon dioxide 27. The creatinine is 1.4 and BUN 18. Random blood sugar is 120. The calcium is 10.3. Liver function studies are normal. Total protein is 8.7, and globulin is elevated at 4.6. Alpha-fetoprotein and beta-hCG are both normal. IMAGING STUDIES: See history of present illness. IMPRESSION: Extensive, high-grade neuroendocrine carcinoma presenting as a large right pelvic mass obstructing the right kidney and resulting in right lower extremity weakness. The mass involves liver and lung. RECOMMENDATIONS: I discussed the findings at length with the patient and his family. I discussed the nature of the malignancy and typical approach, which would initially include systemic chemotherapy with or without immunotherapy depending upon further testing. After a long discussion, we have decided to transfer him to Oncology and initiate treatment while hospitalized. As he is uninsured, we will need ` financial services to become involved as well. Thanks very much for allowing me to provide my recommendations. Job ID: [id number]
--- NOTE | 2019-05-22 16:03 | PDOC.PN ---
- Subjective Encounter Start Date: 05/22/19 Encounter Start Time: 11:01 Subjective: pt up in bed no complains - Objective Resuscitation Status - Order Detail: 05/19/19 04:47 Resuscitation Status Routine Resuscitation Status: FULL: Full Resuscitation Vital Signs & Weight: Vital Signs (12 hours) Temp Pulse Resp BP Pulse Ox 05/22/19 11:57 98.4 F 78 16 162/89 H 98 05/22/19 07:59 98.4 F 79 17 162/89 H 98 05/22/19 04:30 97.8 F 76 16 142/88 H 98 Weight Weight 212 lb I&O: 05/21/19 05/22/19 05/23/19 06:59 06:59 06:59 Intake Total 3300 2720 Output Total 1900 1775 Balance 1400 945 Result Diagrams: 05/20/19 05:53 05/20/19 05:53 Additional Labs: Accuchecks 05/22/19 05/22/19 05/21/19 11:58 05:35 19:54 POC Glucose 167 H 116 H 213 H Phys Exam - Physical Examination Neck: no nodes, no JVD, supple, full ROM Respiratory: no wheezing, no rales, no rhonchi, wheezing present, clear to auscultation bilateral Cardiovascular: RRR, no significant murmur, no rub, gallop, irregular Gastrointestinal: soft, non-tender, no distention, positive bowel sounds Dx/Plan (1) HIEU (acute kidney injury) Code(s): N17.9 - ACUTE KIDNEY FAILURE, UNSPECIFIED Status: Acute (2) Hydronephrosis of right kidney Code(s): N13.30 - UNSPECIFIED HYDRONEPHROSIS Status: Acute (3) Right leg weakness Code(s): R29.898 - OTH SYMPTOMS AND SIGNS INVOLVING THE MUSCULOSKELETAL SYSTEM Status: Acute (4) Pelvic mass Code(s): R19.00 - INTRA-ABD AND PELVIC SWELLING, MASS AND LUMP, UNSP SITE Status: Acute - Plan s/p nephrostomy tube -: pt's pathlogy indicated neuroendocrine tumor -: per oncology notes he will need chemo * . Review of Systems - Review of Systems ENT: negative: Ear Pain, Ear Discharge, Nose Pain, Nose Discharge, Nose Congestion, Mouth Pain, Mouth Swelling, Throat Pain, Throat Swelling, Other Respiratory: negative: Cough, Dry, Shortness of Breath, Hemoptysis, SOB with Excertion, Pleuritic Pain, Sputum, Wheezing Cardiovascular: negative: chest pain, palpitations, orthopnea, paroxysmal nocturnal dyspnea, edema, light headedness, other Gastrointestinal: negative: Nausea, Vomiting, Abdominal Pain, Diarrhea, Constipation, Melena, Hematochezia, Other - Medications/Allergies Allergies/Adverse Reactions: Allergies Allergy/AdvReac Type Severity Reaction Status Date / Time No Known Drug Allergies Allergy Verified 05/19/19 05:45 Medications: Current Medications Acetaminophen (Tylenol) 650 mg PO Q4H PRN PRN Reason: Fever or Mild Pain Hydrocodone Bitart/Acetaminophen ([place] 5/325) 1 tab PO Q6H PRN PRN Reason: Pain (1-4) Hydrocodone Bitart/Acetaminophen ([place] 5/325) 2 tab PO Q6H PRN PRN Reason: Pain (5-8) Last Admin: 05/22/19 11:33 Dose: 2 tab Dextrose/Water (Dextrose 50%) 25 gm SLOW IVP PRN PRN PRN Reason: Hypoglycemia Glucagon (Glucagon) 1 mg IM PRN PRN PRN Reason: Hypoglycemia Dextrose/Water (D5w) 1,000 mls @ 0 mls/hr IV .Q0M PRN PRN Reason: Hypoglycemia Sodium Chloride (Normal Saline 0.9%) 1,000 mls @ 75 mls/hr IV .[id number] Last Admin: 05/21/19 19:42 Dose: 1,000 mls Insulin Human Lispro (Humalog) 0 units SC .MILD SLIDING SCALE PRN PRN Reason: Mild Correctional Scale Last Admin: 05/20/19 22:16 Dose: 2 unit Morphine Sulfate (Morphine) 4 mg SLOW IVP Q6H PRN PRN Reason: Severe Breakthrough Pain (7-10 Last Admin: 05/22/19 14:58 Dose: 4 mg Ondansetron HCl (Zofran Odt) 4 mg SL Q6H PRN PRN Reason: Nausea/Vomiting Ondansetron HCl (Zofran) 4 mg IVP Q6H PRN PRN Reason: Nausea/Vomiting Polyethylene Glycol (Miralax) 17 gm PO DAILY PRN PRN Reason: Constipation Last Admin: 05/20/19 08:55 Dose: 17 gm Senna (Senokot) 2 tab PO DAILY PRN PRN Reason: Constipation Last Admin: 05/20/19 08:55 Dose: 2 tab Sodium Chloride (Flush - Normal Saline) 10 ml IVF PRN PRN PRN Reason: Saline Flush Last Admin: 05/21/19 19:43 Dose: 10 ml
--- NOTE | 2019-05-22 16:26 | PRG ---
DATE OF SERVICE: 05/22/2019 SUBJECTIVE: The patient denies any flank pain. He continues to have some right leg pain secondary to his recurrent mass. He has no other complaints. No fevers. Has had some hematuria from his right percutaneous nephrostomy, but this seems to be clearing. OBJECTIVE: VITAL SIGNS: Temperature 98.4, pulse 78, respirations 16, oxygen saturation 98% on room air, and blood pressure 152/89. GENERAL: He is awake and alert. No apparent distress. CARDIOVASCULAR: Regular rate and rhythm. PULMONARY: Breathing unlabored. ABDOMEN: Soft, nontender/nondistended. Right percutaneous nephrostomy draining blood-tinged urine. GENITOURINARY: Yu catheter in place, draining clear yellow urine. EXTREMITIES: Warm and well perfused. No edema. LABORATORY DATA: There are no new labs today. ASSESSMENT: A 44-year-old male with neuroendocrine cancer of unknown origin with history of testicular cancer, now with right ureteral obstruction and sacral nerve and bone involvement with liver metastases and high-grade right-sided ureteral obstruction. PLAN: The patient successfully underwent a nephrostomy tube and this is draining well. Oncology has been consulted. His Yu is draining as well. The patient is stable from a urologic standpoint. Urology will sign off for now and can be reconsulted as necessary. Otherwise, the patient can follow up with Dr. Syed as an outpatient. Job ID: [id number]
[2019-05-22] MEDS: HumaLOG 300 UNITS/3 ML VIAL SC PRN (18:05)
[2019-05-22] MEDS: Sodium Chloride 0.9% 1,000 ML IV SCH (20:16)
[2019-05-23] MEDS: HYDROcodone/Acetaminophen 5/325 mg Tablet PO PRN ×3 (00:43→18:09)
[2019-05-23] MEDS: Morphine 4 MG/ML VIAL SLOW IVP PRN ×3 (04:04→22:27)
[2019-05-23 05:13] LABS: Anion Gap 10 mmol/L (10-20); BUN (Urea Nitrogen) 11 mg/dL (8.9-20.6); Calc. Creatinine Clearance 131 mL/min (70-130); Calcium 9.1 mg/dL (7.8-10.44); Carbon Dioxide 28 mmol/L (22-29); Chloride 101 mmol/L (98-107); Estimated GFR-MDRD 84; Glucose 202 mg/dL (70-105); Potassium 4.2 mmol/L (3.5-5.1); Sodium 135 mmol/L (136-145)
[2019-05-23] MEDS: Sodium Chloride 0.9% 1,000 ML IV SCH ×2 (11:28→23:47)
[2019-05-23] MEDS: HumaLOG 300 UNITS/3 ML VIAL SC PRN (14:09)
[2019-05-23] MEDS: Senokot 8.6 MG TAB PO PRN (14:09)
[2019-05-23] MEDS: Polyethylene Glycol 3350 17 GM Packet PO PRN (14:09)
[2019-05-24] MEDS: HYDROcodone/Acetaminophen 5/325 mg Tablet PO PRN ×3 (03:20→23:52)
[2019-05-24] MEDS: Morphine 4 MG/ML VIAL SLOW IVP PRN ×3 (06:20→19:49)
[2019-05-24] MEDS: HumaLOG 300 UNITS/3 ML VIAL SC PRN ×3 (07:57→20:01)
[2019-05-24 08:23] LABS: Hemoglobin A1c 7.2 % (4.0-6.0)
[2019-05-24 08:38] LABS: Anion Gap 9 mmol/L (10-20); BUN (Urea Nitrogen) 9 mg/dL (8.9-20.6); Calc. Creatinine Clearance 146 mL/min (70-130); Calcium 9.4 mg/dL (7.8-10.44); Carbon Dioxide 27 mmol/L (22-29); Chloride 102 mmol/L (98-107); Estimated GFR-MDRD Greater than 90; Glucose 154 mg/dL (70-105); Potassium 3.9 mmol/L (3.5-5.1); Sodium 134 mmol/L (136-145)
--- NOTE | 2019-05-24 09:41 | PDOC.PN ---
- Subjective Encounter Start Date: 05/24/19 Encounter Start Time: 10:30 Subjective: pt up in bed no complains - Objective Resuscitation Status - Order Detail: 05/19/19 04:47 Resuscitation Status Routine Resuscitation Status: FULL: Full Resuscitation Vital Signs & Weight: Vital Signs (12 hours) Temp Pulse Resp BP Pulse Ox 05/24/19 07:40 97.7 F 67 18 138/74 98 Weight Weight 212 lb I&O: 05/23/19 05/24/19 05/25/19 06:59 06:59 06:59 Intake Total 3150 1560 Output Total 2865 2615 Balance 285 -1055 Result Diagrams: 05/20/19 05:53 05/24/19 07:59 Additional Labs: Accuchecks 05/24/19 05/23/19 05/23/19 06:48 20:58 16:38 POC Glucose 186 H 167 H 128 H 05/23/19 11:37 POC Glucose 166 H Phys Exam - Physical Examination Neck: no nodes, no JVD, supple, full ROM Respiratory: no wheezing, no rales, no rhonchi, wheezing present, clear to auscultation bilateral Cardiovascular: RRR, no significant murmur, no rub, gallop, irregular Gastrointestinal: soft, non-tender, no distention, positive bowel sounds Dx/Plan (1) HIEU (acute kidney injury) Code(s): N17.9 - ACUTE KIDNEY FAILURE, UNSPECIFIED Status: Acute (2) Hydronephrosis of right kidney Code(s): N13.30 - UNSPECIFIED HYDRONEPHROSIS Status: Acute (3) Right leg weakness Code(s): R29.898 - OT SYMPTOMS AND SIGNS INVOLVING THE MUSCULOSKELETAL SYSTEM Status: Acute (4) Pelvic mass Code(s): R19.00 - INTRA-ABD AND PELVIC SWELLING, MASS AND LUMP, UNSP SITE Status: Acute - Plan pt to start chemo per oncology -: will discontinue iv fluids * . Review of Systems - Review of Systems Respiratory: negative: Cough, Dry, Shortness of Breath, Hemoptysis, SOB with Excertion, Pleuritic Pain, Sputum, Wheezing Cardiovascular: negative: chest pain, palpitations, orthopnea, paroxysmal nocturnal dyspnea, edema, light headedness, other Gastrointestinal: negative: Nausea, Vomiting, Abdominal Pain, Diarrhea, Constipation, Melena, Hematochezia, Other - Medications/Allergies Allergies/Adverse Reactions: Allergies Allergy/AdvReac Type Severity Reaction Status Date / Time No Known Drug Allergies Allergy Verified 05/19/19 05:45 Medications: Current Medications Acetaminophen (Tylenol) 650 mg PO Q4H PRN PRN Reason: Fever or Mild Pain Hydrocodone Bitart/Acetaminophen ([place] 5/325) 1 tab PO Q6H PRN PRN Reason: Pain (1-4) Hydrocodone Bitart/Acetaminophen ([place] 5/325) 2 tab PO Q6H PRN PRN Reason: Pain (5-8) Last Admin: 05/24/19 03:20 Dose: 2 tab Dextrose/Water (Dextrose 50%) 25 gm SLOW IVP PRN PRN PRN Reason: Hypoglycemia Glucagon (Glucagon) 1 mg IM PRN PRN PRN Reason: Hypoglycemia Dextrose/Water (D5w) 1,000 mls @ 0 mls/hr IV .Q0M PRN PRN Reason: Hypoglycemia Insulin Glargine 5 units/ (Miscellaneous Medication) 0.05 mls @ 0 mls/hr SC QAM LIDYA Insulin Human Lispro (Humalog) 0 units SC .MILD SLIDING SCALE PRN PRN Reason: Mild Correctional Scale Last Admin: 05/24/19 07:57 Dose: 2 unit Morphine Sulfate (Morphine) 4 mg SLOW IVP Q6H PRN PRN Reason: Severe Breakthrough Pain (7-10 Last Admin: 05/24/19 06:20 Dose: 4 mg Ondansetron HCl (Zofran Odt) 4 mg SL Q6H PRN PRN Reason: Nausea/Vomiting Ondansetron HCl (Zofran) 4 mg IVP Q6H PRN PRN Reason: Nausea/Vomiting Polyethylene Glycol (Miralax) 17 gm PO DAILY PRN PRN Reason: Constipation Last Admin: 05/23/19 14:09 Dose: 17 gm Senna (Senokot) 2 tab PO DAILY PRN PRN Reason: Constipation Last Admin: 05/23/19 14:09 Dose: 2 tab Sodium Chloride (Flush - Normal Saline) 10 ml IVF PRN PRN PRN Reason: Saline Flush Last Admin: 05/21/19 19:43 Dose: 10 ml
--- NOTE | 2019-05-24 09:44 | PDOC.PN ---
- Subjective Encounter Start Date: 05/23/19 Encounter Start Time: 16:00 Subjective: pt up in bed no complains -: pt had a fall while getting out of the bathroom - Objective Resuscitation Status - Order Detail: 05/19/19 04:47 Resuscitation Status Routine Resuscitation Status: FULL: Full Resuscitation Vital Signs & Weight: Vital Signs (12 hours) Temp Pulse Resp BP Pulse Ox 05/24/19 07:40 97.7 F 67 18 138/74 98 Weight Weight 212 lb I&O: 05/23/19 05/24/19 05/25/19 06:59 06:59 06:59 Intake Total 3150 1560 Output Total 2868 2615 Balance 285 -1055 Result Diagrams: 05/20/19 05:53 05/24/19 07:59 Additional Labs: Accuchecks 05/24/19 05/23/19 05/23/19 06:48 20:58 16:38 POC Glucose 186 H 167 H 128 H 05/23/19 11:37 POC Glucose 166 H Phys Exam - Physical Examination Neck: no nodes, no JVD, supple, full ROM Respiratory: no wheezing, no rales, no rhonchi, wheezing present, clear to auscultation bilateral Cardiovascular: RRR, no significant murmur, no rub, gallop, irregular Gastrointestinal: soft, non-tender, no distention, positive bowel sounds Dx/Plan (1) HIEU (acute kidney injury) Code(s): N17.9 - ACUTE KIDNEY FAILURE, UNSPECIFIED Status: Acute (2) Hydronephrosis of right kidney Code(s): N13.30 - UNSPECIFIED HYDRONEPHROSIS Status: Acute (3) Right leg weakness Code(s): R29.898 - OTH SYMPTOMS AND SIGNS INVOLVING THE MUSCULOSKELETAL SYSTEM Status: Acute (4) Pelvic mass Code(s): R19.00 - INTRA-ABD AND PELVIC SWELLING, MASS AND LUMP, UNSP SITE Status: Acute - Plan pt slipped and fell while getting out of the shower -: nephrostomy inplace * . Review of Systems - Review of Systems Respiratory: negative: Cough, Dry, Shortness of Breath, Hemoptysis, SOB with Excertion, Pleuritic Pain, Sputum, Wheezing Cardiovascular: negative: chest pain, palpitations, orthopnea, paroxysmal nocturnal dyspnea, edema, light headedness, other Gastrointestinal: negative: Nausea, Vomiting, Abdominal Pain, Diarrhea, Constipation, Melena, Hematochezia, Other - Medications/Allergies Allergies/Adverse Reactions: Allergies Allergy/AdvReac Type Severity Reaction Status Date / Time No Known Drug Allergies Allergy Verified 05/19/19 05:45 Medications: Current Medications Acetaminophen (Tylenol) 650 mg PO Q4H PRN PRN Reason: Fever or Mild Pain Hydrocodone Bitart/Acetaminophen ([place] 5/325) 1 tab PO Q6H PRN PRN Reason: Pain (1-4) Hydrocodone Bitart/Acetaminophen ([place] 5/325) 2 tab PO Q6H PRN PRN Reason: Pain (5-8) Last Admin: 05/24/19 03:20 Dose: 2 tab Dextrose/Water (Dextrose 50%) 25 gm SLOW IVP PRN PRN PRN Reason: Hypoglycemia Glucagon (Glucagon) 1 mg IM PRN PRN PRN Reason: Hypoglycemia Dextrose/Water (D5w) 1,000 mls @ 0 mls/hr IV .Q0M PRN PRN Reason: Hypoglycemia Insulin Glargine 5 units/ (Miscellaneous Medication) 0.05 mls @ 0 mls/hr SC QAM LIDYA Insulin Human Lispro (Humalog) 0 units SC .MILD SLIDING SCALE PRN PRN Reason: Mild Correctional Scale Last Admin: 05/24/19 07:57 Dose: 2 unit Morphine Sulfate (Morphine) 4 mg SLOW IVP Q6H PRN PRN Reason: Severe Breakthrough Pain (7-10 Last Admin: 05/24/19 06:20 Dose: 4 mg Ondansetron HCl (Zofran Odt) 4 mg SL Q6H PRN PRN Reason: Nausea/Vomiting Ondansetron HCl (Zofran) 4 mg IVP Q6H PRN PRN Reason: Nausea/Vomiting Polyethylene Glycol (Miralax) 17 gm PO DAILY PRN PRN Reason: Constipation Last Admin: 05/23/19 14:09 Dose: 17 gm Senna (Senokot) 2 tab PO DAILY PRN PRN Reason: Constipation Last Admin: 05/23/19 14:09 Dose: 2 tab Sodium Chloride (Flush - Normal Saline) 10 ml IVF PRN PRN PRN Reason: Saline Flush Last Admin: 05/21/19 19:43 Dose: 10 ml
[2019-05-24] MEDS: Insulin Glargine 5 UNITS in Pre-Filled Syringe 1 EACH SC SCH (10:20)
[2019-05-24] MEDS ORDERED: PALONOSETRON HCL 0.05 MG/ML 5 ML VIAL IVP SCH (10:30)
[2019-05-24] MEDS ORDERED: CARBOplatin 750 MG in Sodium Chloride 0.9% 250 ML 250 ML IVPB SCH (10:30)
[2019-05-24] MEDS ORDERED: Etoposide 200 MG in Sodium Chloride 0.9% 500 ML IVPB SCH (10:30)
[2019-05-24] MEDS ORDERED: Dexamethasone 10 MG/ML VIAL SLOW IVP SCH (10:30)
[2019-05-24 10:33] LABS: #Eosinphils 0.2 thou/uL (0.0-0.7); #Lymphocytes 1.9 thou/uL (1.20-3.40); #Monocytes 0.7 thou/uL (0.11-0.59); #Neutrophils 5.3 thou/uL (1.40-6.50); %Basophils 0.5 % (0.0-1.0); %Eosinophils 2.8 % (0.0-10.0); %Lymphocytes 23.4 % (21.0-51.0); %Monocytes 8.6 % (0.0-10.0); %Neutrophils 64.8 % (42.0-75.0); Hemoglobin 12.3 g/dL (14.0-18.0); Mean Corpuscular HGB CONC 32.8 g/dL (32.0-36.0); Mean Corpuscular Hemoglobin 30.2 pg (27.0-31.0); Mean Platelet Volume 8.2 fL (7.4-10.4); Platelet Count 251 thou/uL (130-400); Red Blood Cell (RBC) Count 4.07 mill/uL (4.70-6.10); White Blood Cell (WBC) Count 8.2 thou/uL (4.8-10.8)
[2019-05-24 10:57] LABS: ALT (SGPT) 17 U/L (8-55); AST (SGOT) 23 U/L (5-34); Albumin 3.7 g/dL (3.5-5.0); Alkaline Phosphatase 70 U/L (40-150); Anion Gap 11 mmol/L (10-20); BUN (Urea Nitrogen) 9 mg/dL (8.9-20.6); Bilirubin, Total 0.5 mg/dL (0.2-1.2); Calc. Creatinine Clearance 144 mL/min (70-130); Calcium 9.5 mg/dL (7.8-10.44); Carbon Dioxide 27 mmol/L (22-29); Chloride 101 mmol/L (98-107); Estimated GFR-MDRD Greater than 90; Globulin 4.2 g/dL (2.4-3.5); Glucose 113 mg/dL (70-105); Potassium 3.8 mmol/L (3.5-5.1); Protein, Total 7.9 g/dL (6.0-8.3); Sodium 135 mmol/L (136-145); Uric Acid 3.7 mg/dL (3.5-7.2)
[2019-05-24 11:15] LABS: T4 9.8 ug/dL (4.87-11.72); Thyroid Stimulating Hormone 1.8566 uIU/mL (0.35-4.94)
[2019-05-24] MEDS ORDERED: ATEZOLIZUMAB 1,200 MG in Sodium Chloride 0.9% 250 ML 250 ML IV SCH (13:15)
[2019-05-25] MEDS: Morphine 4 MG/ML VIAL SLOW IVP PRN ×2 (01:58→19:05)
[2019-05-25] MEDS: HYDROcodone/Acetaminophen 5/325 mg Tablet PO PRN ×2 (08:44→15:09)
[2019-05-25] MEDS: Insulin Glargine 5 UNITS in Pre-Filled Syringe 1 EACH SC SCH (08:51)
[2019-05-25] MEDS ORDERED: Etoposide 200 MG in Sodium Chloride 0.9% 500 ML IVPB SCH (10:00)
[2019-05-25] MEDS: HumaLOG 300 UNITS/3 ML VIAL SC PRN ×2 (11:15→16:24)
[2019-05-25] MEDS ORDERED: HYDROcodone/Acetaminophen 5/325 mg Tablet PO PRN (19:27)
[2019-05-26] MEDS: HYDROcodone/Acetaminophen 5/325 mg Tablet PO PRN ×6 (00:10→21:29)
[2019-05-26] MEDS: HumaLOG 300 UNITS/3 ML VIAL SC PRN ×3 (06:25→17:22)
[2019-05-26 09:01] LABS: ALT (SGPT) 16 U/L (8-55); AST (SGOT) 20 U/L (5-34); Albumin 3.6 g/dL (3.5-5.0); Alkaline Phosphatase 72 U/L (40-150); Anion Gap 9 mmol/L (10-20); BUN (Urea Nitrogen) 19 mg/dL (8.9-20.6); Bilirubin, Total 0.4 mg/dL (0.2-1.2); Calc. Creatinine Clearance 143 mL/min (70-130); Calcium 9.2 mg/dL (7.8-10.44); Carbon Dioxide 29 mmol/L (22-29); Chloride 103 mmol/L (98-107); Estimated GFR-MDRD Greater than 90; Globulin 3.8 g/dL (2.4-3.5); Glucose 116 mg/dL (70-105); Potassium 4.4 mmol/L (3.5-5.1); Protein, Total 7.4 g/dL (6.0-8.3); Sodium 137 mmol/L (136-145)
[2019-05-26] MEDS: Insulin Glargine 5 UNITS in Pre-Filled Syringe 1 EACH SC SCH (09:34)
[2019-05-26] MEDS ORDERED: Etoposide 200 MG in Sodium Chloride 0.9% 500 ML IVPB SCH (10:00)
--- NOTE | 2019-05-26 11:51 | PRG ---
DATE OF SERVICE: 05/26/2019 SUBJECTIVE: The patient states he is doing fine. He is still having leg pain and numbness secondary to the tumor, which has grown into his sacral bone. He has a nephrostomy tube in place, which is draining well. His catheter has also been draining well. He initially had complained that he was having difficulty with urination, but on further inquiry today, he does state that the majority of his problem was not so much difficulty with urination, but more control of his urination as he was having significant urgency, frequency, and what sounds like urge incontinence. He is currently receiving his last dose of chemotherapy today and is supposedly going to be discharged here shortly after chemotherapy has completed. The Oncology Team had requested the plan regarding his Yu catheter. OBJECTIVE: VITAL SIGNS: Temperature 97.9, pulse 70, respirations 16, blood pressure 124/65, saturations 100% on room air. GENERAL: No apparent distress. Communicative and alert. CARDIOVASCULAR: Regular rate and rhythm. ABDOMEN: Soft, nontender, nondistended. Positive bowel sounds. Palpable mass in the right lower quadrant. BACK: Nephrostomy tube in place, draining clear yellow urine. : Yu catheter in place, draining clear yellow urine. EXTREMITIES: No clubbing, cyanosis, or edema. Still has numbness along the right lower extremity. LABORATORY DATA: Creatinine today is 0.88. Otherwise, normal electrolytes. 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 Hopefully, as his tumor shrinks, the patient may be able to get rid of his nephrostomy tube or convert it to a ureteral stent, although this will need to be assessed in the future. I would recommend continuation of the nephrostomy tube indefinitely until I have cleared the patient to have the nephrostomy tube removed. For the Yu catheter, it is reasonable to consider a voiding trial today. I have given instructions to the nurse to perform a voiding trial and we will assess how well the patient can urinate. If he urinates well, we may consider starting him on oxybutynin, which should help his bladder spasms and urgency, which could be caused by the tumor compressing on the bladder wall. This should symptomatically help his urgency and frequency symptoms. I will await for the void trial as it is predicated that the patient can actually urinate relatively easily before giving consideration to starting an antimuscarinic. The patient will need to follow up with me as an outpatient afterwards and I would recommend that he call for an appointment to come back and see me in approximately 3 to 4 weeks assuming that his catheter is able to be removed. Job ID: [id number]
--- NOTE | 2019-05-26 14:40 | PDOC.PN ---
- Subjective Encounter Start Date: 05/26/19 Encounter Start Time: 10:30 Subjective: pt up in bed complains of pain to her right leg - Objective Resuscitation Status - Order Detail: 05/19/19 04:47 Resuscitation Status Routine Resuscitation Status: FULL: Full Resuscitation Vital Signs & Weight: Vital Signs (12 hours) Temp Pulse Resp BP Pulse Ox 05/26/19 08:00 100 05/26/19 07:52 97.9 F 70 16 124/65 100 05/26/19 03:44 97.4 F L 68 16 128/65 100 Weight Weight 212 lb I&O: 05/25/19 05/26/19 05/27/19 06:59 06:59 06:59 Intake Total 2570 1310 Output Total 4774 2800 700 Balance -2145 -1490 -700 Result Diagrams: 05/24/19 10:24 05/26/19 08:29 Additional Labs: Accuchecks 05/26/19 05/26/19 05/25/19 12:30 05:31 20:11 POC Glucose 205 H 163 H 133 H 05/25/19 16:10 POC Glucose 218 H Phys Exam - Physical Examination Neck: no nodes, no JVD, supple, full ROM Respiratory: no wheezing, no rales, no rhonchi, wheezing present, clear to auscultation bilateral Cardiovascular: RRR, no significant murmur, no rub, gallop, irregular Gastrointestinal: soft, non-tender, no distention, positive bowel sounds Dx/Plan (1) HIEU (acute kidney injury) Code(s): N17.9 - ACUTE KIDNEY FAILURE, UNSPECIFIED Status: Acute (2) Hydronephrosis of right kidney Code(s): N13.30 - UNSPECIFIED HYDRONEPHROSIS Status: Acute (3) Right leg weakness Code(s): R29.898 - OTH SYMPTOMS AND SIGNS INVOLVING THE MUSCULOSKELETAL SYSTEM Status: Acute (4) Pelvic mass Code(s): R19.00 - INTRA-ABD AND PELVIC SWELLING, MASS AND LUMP, UNSP SITE Status: Acute - Plan pt s/p chemo, and nephrostomy tube placement * .
[2019-05-26] MEDS: Morphine 4 MG/ML VIAL SLOW IVP PRN (19:40)
[2019-05-26] MEDS: Oxybutynin 5 MG TAB PO SCH (20:22)
[2019-05-27] MEDS: HYDROcodone/Acetaminophen 5/325 mg Tablet PO PRN ×2 (01:37→05:37)
[2019-05-27 07:48] VITALS: BP 146/78; TEMP 97.6
[2019-05-27] MEDS: Insulin Glargine 5 UNITS in Pre-Filled Syringe 1 EACH SC SCH (10:13)
[2019-05-27] MEDS: Oxybutynin 5 MG TAB PO SCH (10:19)
--- NOTE | 2019-05-27 23:29 | DIS ---
DATE OF ADMISSION: 05/19/2019 DATE OF DISCHARGE: 05/27/2019 DISCHARGE DIAGNOSES: As of the followin. Acute kidney injury. 2. Hydronephrosis of the right kidney. 3. Right pelvic mass. 4. Right leg weakness. HOSPITAL COURSE: The patient is a 44-year-old male, who initially presented to the hospital on 05/19 with complaints of difficulty voiding and right lower extremity weakness. The patient also had 40 pounds weight loss in the past 6 months. 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 The patient also had an MRI of the lumbar spine that shows large pelvic mass in the sacrum and iliac bone. This was surrounded around multiple nerve roots. Per H and P notes, this case was discussed with General Surgery and Neurosurgery, who did not feel any specific needs for any intervention. The patient did undergo a IR-guided biopsy and the biopsy result indicated positive for high-grade neuroendocrine tumor. The patient does have a history of testicular cancer. I did check alpha fetoprotein, LDH and beta HCG, which were negative. At this time, I did consult Oncology. The patient was also seen by Urology and underwent a right-sided nephrostomy tube placement for the hydronephrosis. The patient was started on chemotherapy, get a round of chemotherapy and then he was okay for discharge, and he will follow up as an outpatient. The patient initially had a Yu catheter, which was then removed. He was seen by Urology. Urology recommended outpatient followup for his nephrostomy tube. This all was explained to the patient and the patient's sister is at the bedside. HOME MEDICATIONS: Home medications will be as the followin. [place] 5-325 one p.o. q.4 hours p.r.n. 2. Oxybutynin 5 mg b.i.d. 3. MiraLAX 17 g p.o. daily. 4. Lisinopril hydrochlorothiazide 1 tablet p.o. daily. 5. Metformin 500 mg p.o. daily. PHYSICAL EXAMINATION: VITAL SIGNS: Temperature 97.6, 70, 16, 99% on room air, 146/78. GENERAL: He is awake, alert, and oriented x3. Does not appear in distress. CV: S1, S2 present. No murmurs, rubs, or gallops. ABDOMEN: Soft and nontender. Bowel sounds present x2. EXTREMITIES: No edema. Job ID: [id number]
== END 2019-05-27 12:39 | disposition home or self-care (01) | DRG 844 ==
LOC: ERS 17:03 → SURG B 05-19 00:30 → OBSVTOIN 05-19 04:59 → ONC 05-22 18:28
PROVIDERS: ADMIT Internal Medicine; ATTEND Internal Medicine
PROC: 0TB34ZX Excision of Right Kidney Pelvis, Percutaneous Endoscopic Approach, Diagnostic (ICD-10-PCS; principal; 2019-05-21)
PROC: 0T9330Z Drainage of Right Kidney Pelvis with Drainage Device, Percutaneous Approach (ICD-10-PCS; 2019-05-21)
DX: C7A.1 Malignant poorly differentiated neuroendocrine tumors (principal); N17.9 Acute kidney failure, unspecified; N13.4 Hydroureter; N13.1 Hydronephrosis with ureteral stricture, not elsewhere classified; I10 Essential (primary) hypertension; E11.9 Type 2 diabetes mellitus without complications; F17.210 Nicotine dependence, cigarettes, uncomplicated; R32 Unspecified urinary incontinence; R33.9 Retention of urine, unspecified; C78.7 Secondary malignant neoplasm of liver and intrahepatic bile duct; C78.00 Secondary malignant neoplasm of unspecified lung; Z85.47 Personal history of malignant neoplasm of testis; Z79.4 Long term (current) use of insulin
CPT/HCPCS: 36415; 36416; 50431; 50434; 51702; 72158; 72192; 74177; 77012; 80048; 80053; 81003; 82105; 83036; 83615; 84436; 84443; 84550; 84702; 85025; 85610; 85652; 85730; 87086; 88305; 88313; 88333; 88341; 88342; 96374; 96375; A9577; G9022; J0696; J1100; J1644; J1815; J2060; J2250; J2270; J2405; J2469; J3010; J3490; J7050; J9045; J9181; Q9966

== ENCOUNTER 2019-06-14 11:56 | Day surgery (SDC) | payer SELFPAY ==
[2019-06-14 12:30] VITALS: BP 103/58; TEMP 98.7
[2019-06-14 12:56] LABS: ALT (SGPT) 7 U/L (8-55); AST (SGOT) 11 U/L (5-34); Albumin 3.8 g/dL (3.5-5.0); Alkaline Phosphatase 107 U/L (40-150); Anion Gap 15 mmol/L (10-20); BUN (Urea Nitrogen) 32 mg/dL (8.9-20.6); Bilirubin, Total 0.3 mg/dL (0.2-1.2); Calc. Creatinine Clearance 81 mL/min (70-130); Calcium 11.2 mg/dL (7.8-10.44); Carbon Dioxide 25 mmol/L (22-29); Chloride 95 mmol/L (98-107); Estimated GFR-MDRD 49; Globulin 4.4 g/dL (2.4-3.5); Glucose 221 mg/dL (70-105); Potassium 4.4 mmol/L (3.5-5.1); Protein, Total 8.2 g/dL (6.0-8.3); Sodium 131 mmol/L (136-145)
[2019-06-14] MEDS ORDERED: Palonosetron HCl 0.25 MG in Sodium Chloride 0.9% 50 ML IVPB SCH (13:00)
[2019-06-14 13:13] LABS: T4 9.9 ug/dL (4.87-11.72); Thyroid Stimulating Hormone 1.2833 uIU/mL (0.35-4.94)
[2019-06-14] MEDS ORDERED: Etoposide 200 MG in Sodium Chloride 0.9% 500 ML IV SCH (13:30)
[2019-06-14] MEDS ORDERED: CARBOplatin 750 MG in Sodium Chloride 0.9% 250 ML 250 ML IVPB SCH (13:30)
[2019-06-14] MEDS ORDERED: HYDROcodone/Acetaminophen 10/325 mg Tablet PO PRN (14:19)
[2019-06-14] MEDS ORDERED: Sodium Chloride 0.9% 1,000 ML IV SCH (14:30)
[2019-06-14] MEDS ORDERED: CARBOplatin 550 MG in Sodium Chloride 0.9% 250 ML 250 ML IVPB SCH (14:30)
== END 2019-06-14 17:31 | disposition home or self-care (01) ==
LOC: ONC/OP 11:56
PROVIDERS: ATTEND Internal Medicine Hematology & Oncology
DX: Z51.11 Encounter for antineoplastic chemotherapy (principal); C34.31 Malignant neoplasm of lower lobe, right bronchus or lung
CPT/HCPCS: 80053; 83615; 84436; 84443; 84550; 96375; 96413; 96417; J1100; J2469; J7050; J9045

== ENCOUNTER 2019-06-15 12:42 | Day surgery (SDC) | payer SELFPAY ==
[~2019-06-15 12:42] MED LIST changes: +Etoposide 200 MG in Sodium Chloride 0.9% 500 ML IV SCH; -Gadobenate Dimeglumine 529 MG/1 ML (20ML VIAL) ONE; -ISOVUE-370 76%-LOCM 1 ML ONE
[2019-06-15] MEDS ORDERED: Sodium Chloride 0.9% 20 ML ONE (12:58)
[2019-06-15 13:31] VITALS: BP 133/86; TEMP 98.6
== END 2019-06-15 15:44 | disposition home or self-care (01) ==
LOC: ONC/OP 12:42
PROVIDERS: ATTEND Internal Medicine Hematology & Oncology
DX: Z51.11 Encounter for antineoplastic chemotherapy (principal); C34.31 Malignant neoplasm of lower lobe, right bronchus or lung
CPT/HCPCS: 96413; J7050

== ENCOUNTER 2019-06-16 12:43 | Day surgery (SDC) | payer SELFPAY ==
[~2019-06-16 12:43] MED LIST changes: +ATEZOLIZUMAB 1,200 MG in Sodium Chloride 0.9% 250 ML 250 ML IV SCH; +ATEZOLIZUMAB 1,200 MG in Sodium Chloride 0.9% 250 ML 250 ML IVPB SCH
[2019-06-16 13:45] VITALS: BP 130/73; TEMP 98.5
== END 2019-06-16 15:22 | disposition home or self-care (01) ==
LOC: ONC/OP 12:43
PROVIDERS: ATTEND Internal Medicine Hematology & Oncology
DX: Z51.11 Encounter for antineoplastic chemotherapy (principal); C34.31 Malignant neoplasm of lower lobe, right bronchus or lung
CPT/HCPCS: 96413; J7050

== ENCOUNTER 2019-06-26 19:17 | Inpatient (IN) | payer MEDICAID, SELFPAY ==
[2019-06-26] MEDS ORDERED: Sodium Chloride 0.9% 100 ML ONE (19:54)
[2019-06-26] MEDS ORDERED: Cefepime 2 GM VIAL ONE (19:54)
[2019-06-26 20:02] LABS: Hemoglobin 9.1 g/dL (14.0-18.0); Mean Corpuscular HGB CONC 34.6 g/dL (32.0-36.0); Mean Corpuscular Hemoglobin 30.6 pg (27.0-31.0); Mean Corpuscular Volume 88.5 fL (78.0-98.0); Mean Platelet Volume 8.8 fL (7.4-10.4); Platelet Count 123 thou/uL (130-400); RBC Distribution Width 13.5 % (11.5-14.5); Red Blood Cell (RBC) Count 2.99 mill/uL (4.70-6.10); White Blood Cell (WBC) Count 5.7 thou/uL (4.8-10.8)
--- NOTE | 2019-06-26 20:14 | RAD ---
XR Chest 1 View Portable History: Fever Comparison: None. Findings: Lungs are clear. No pneumothorax or effusion. Cardiac silhouette and mediastinal contours a re within normal limits. Known right lower lobe cavitary mass is not well delineated. Impression: No acute intrathoracic abnormality.
[2019-06-26 20:18] LABS: Band 12 % (5-11); Hypochromia SLIGHT = 6-15 cells (100X) (0-5/hpf); Lymphocytes 11 % (21-51); MDiff Complete? YES; Monocytes 6 % (0-10); Neutrophil 71 % (42-75); Platelet Morphology Comment Appears Decreased
[2019-06-26 20:30] LABS: Bilirubin Negative (Negative); Blood, Urine Trace (Negative); Clarity Clear (Clear); Glucose, Urine (Dipstick) Greater than 1000 mg/dL (Negative); Leukocyte Negative Leu/uL (Negative); Nitrite Negative (Negative); Protein, Urine (Dipstick) 100 mg/dL (Neg-Trace); RBC/HPF 0-3 HPF (0-3); Squamous Epithelial 0-3 HPF (0-3); Urobilinogen Normal mg/dL (Less than 2); WBC/HPF 0-3 HPF (0-3)
[2019-06-26 20:33] LABS: Bacteria/HPF 1+ HPF (None Seen)
[2019-06-26] MEDS ORDERED: Acetaminophen 500 MG TAB ONE (21:02)
[2019-06-26] MEDS ORDERED: Ibuprofen 800 MG TAB ONE (21:02)
[2019-06-26 21:15] LABS: Albumin 3.5 g/dL (3.5-5.0)
[2019-06-26 21:16] LABS: Chloride 94 mmol/L (98-107); Potassium 4.2 mmol/L (3.5-5.1); Sodium 126 mmol/L (136-145)
[2019-06-26 21:17] LABS: Calcium 9.5 mg/dL (7.8-10.44)
[2019-06-26 21:18] LABS: Globulin 4.4 g/dL (2.4-3.5); Glucose 209 mg/dL (70-105); Protein, Total 7.9 g/dL (6.0-8.3)
[2019-06-26 21:19] LABS: Anion Gap 13 mmol/L (10-20); Carbon Dioxide 23 mmol/L (22-29)
[2019-06-26 21:20] LABS: Alkaline Phosphatase 90 U/L (40-150); Bilirubin, Total 0.4 mg/dL (0.2-1.2)
[2019-06-26 21:21] LABS: Calc. Creatinine Clearance 0 mL/min (70-130); Estimated GFR-MDRD 66
[2019-06-26 21:22] LABS: BUN (Urea Nitrogen) 24 mg/dL (8.9-20.6)
[2019-06-26 21:23] LABS: AST (SGOT) 9 U/L (5-34)
[2019-06-26 21:24] LABS: ALT (SGPT) 8 U/L (8-55)
[2019-06-26] MEDS ORDERED: Morphine 4 MG/ML VIAL ONE (21:50)
[2019-06-26] MEDS ORDERED: Ondansetron ODT 4 MG TAB SL PRN (22:25)
[2019-06-26] MEDS ORDERED: Ondansetron PF 4 MG/2 ML Vial IVP PRN (22:25)
[2019-06-26 22:52] VITALS: BMI 32.8
[2019-06-26] MEDS: Sodium Chloride 0.9% 1,000 ML IV SCH (23:57)
[2019-06-27] MEDS ORDERED: Polyethylene Glycol 3350 17 GM Packet PO PRN (02:05)
[2019-06-27] MEDS ORDERED: Dextrose 50% Abboject 50 ML SYRINGE SLOW IVP PRN (02:09)
[2019-06-27] MEDS ORDERED: Dextrose 5% in Water 1,000 ML IV PRN (02:09)
[2019-06-27] MEDS ORDERED: HumaLOG 300 UNITS/3 ML VIAL SC PRN (02:21)
[2019-06-27] MEDS: HYDROcodone/Acetaminophen 5/325 mg Tablet PO PRN ×4 (03:31→20:30)
[2019-06-27] MEDS: Cefepime 2 GM in Sodium Chloride 0.9% 100 ML IVPB SCH ×3 (03:45→19:52)
--- NOTE | 2019-06-27 03:45 | HP ---
PRIMARY CARE DOCTOR: [facility]. CODE STATUS: Full code. TIME OF EVALUATION: 2 a.m. CHIEF COMPLAINT: Fever. HISTORY OF PRESENT ILLNESS: A 44-year-old male patient with past medical history of stomach cancer, status post chemo. The patient came to the hospital after having fever. The symptoms started today. He measured temperature 100.1 when he was at home, associated with weakness, symptoms are mild with no clear triggers, no alleviating factors. The patient denies any other symptoms from any other systems. The patient does have a right-sided nephrostomy tube that had been placed in the past due to tumor compression and inability of the right kidney to drain urine and this could be the source for the current problem. The urine that was checked was from the left kidney and given that he has 2 different draining systems for urine, we will check the urine on the bag from the nephrostomy tube too. REVIEW OF SYSTEMS: CONSTITUTIONAL: The patient has fever, chills, generalized weakness. RESPIRATORY: No cough, sputum production, or shortness of breath. CARDIOVASCULAR: No chest pain or palpitations. GASTROINTESTINAL: No nausea, vomiting, diarrhea, or abdominal pain. [employer]: No dizziness, headache, or feeling lightheaded. GENITOURINARY: No burning urination. The patient does have a nephrostomy tube in the right kidney. EXTREMITIES: No leg swelling. All other systems were reviewed and negative except for the findings mentioned above. PAST MEDICAL HISTORY: Positive for diabetes type 2, hypertension. Stomach cancer, currently receiving chemotherapy, the last time was past week, next time was going to be 07/05. PAST SURGICAL HISTORY: Abdominal surgery for cancer 20 years ago. PSYCHIATRIC HISTORY: No psych history. SOCIAL HISTORY: The patient drinks socially every week. No drugs. Smoker, on a daily basis. Lives at home with family. Lives with sister. FAMILY HISTORY: Mother with uterine cancer. KNOWN ALLERGIES: No known drug allergies. REPORTED MEDICATIONS: 1. Metformin. 2. Lisinopril. 3. Hydrochlorothiazide. 4. Oxybutynin chloride. 5. Hydrocodone. PHYSICAL EXAMINATION: VITAL SIGNS: On presentation, blood pressure 157/89 with heart rate 110, respiratory rate was 32, temperature 101.9, pain was 6/10, oxygen saturation was 99% on room air. GENERAL APPEARANCE: The patient is alert, oriented, in no acute distress. Generalized weakness. HEENT: Eyes, normal conjunctivae. Moist oral mucosa. Anicteric. No JVD. RESPIRATORY: Bilateral air entry. No rales or wheezes. Symmetric expansion. CARDIOVASCULAR: Normal rate. Regular rhythm. No murmurs. No gallop. No . ABDOMEN: Soft. Normal bowel sounds. MUSCULOSKELETAL: Baseline range of motion and strength. SKIN: Warm, intact. No pallor. No rash. No redness. Capillary refill seems to be intact. NEURO: No evidence of any new focal weakness. Cranial nerves seem to be intact. PSYCH: The patient is in good mood. No anxiety. Optimal judgment. GENITOURINARY: The patient has a right kidney nephrostomy tube. DIAGNOSTIC DATA: Chest x-ray was negative. LABORATORY DATA: Reviewed. The patient has white count 5.7, hemoglobin 9.1, MCV 88.5, platelet count 223. Sodium 126, potassium 4.2, chloride 94, carbon dioxide 23, anion gap 13, BUN 24, creatinine 1.18, GFR 66, glucose 209, lactic acid 1.8, calcium 9.5, total bilirubin 0.4. LFTs were negative. Urine was done, was negative. ASSESSMENT AND PLAN: The patient will be placed in the hospital with following medical problems: 1. Neutropenic fever. The patient is status post chemotherapy. The patient has been started on antibiotics. 2. Normocytic anemia. This is likely secondary to both cancer and chemotherapy. Hematology is following. 3. Hyponatremia, sodium 126. This seems to be chronic. The patient has no acute symptoms, we will replace electrolytes as needed. The patient received IV fluids. 4. Uncontrolled diabetes. Blood sugar 209, we will reconcile home medications and put the patient on sliding scale for optimal control. 5. Deep venous thrombosis prophylaxis. 6. Uncontrolled blood pressure. The patient presented with systolic blood pressure 157. We will reconcile home medications. We will not treat aggressively since the patient is at risk for septic shock. 7. History of stomach cancer, having chemo on the of this month. This can be followed as outpatient with Oncology. 8. Deep venous thrombosis prophylaxis. Job ID: [id number]
[2019-06-27] MEDS ORDERED: Cefepime 2 MG in Syringe 0 ML IVPB SCH (04:00)
[2019-06-27 05:01] LABS: Anion Gap 13 mmol/L (10-20); BUN (Urea Nitrogen) 23 mg/dL (8.9-20.6); Calc. Creatinine Clearance 122 mL/min (70-130); Carbon Dioxide 19 mmol/L (22-29); Chloride 102 mmol/L (98-107); Estimated GFR-MDRD 79; Glucose 172 mg/dL (70-105); Potassium 3.9 mmol/L (3.5-5.1); Sodium 130 mmol/L (136-145)
[2019-06-27 05:07] LABS: Band 2 % (5-11); Hemoglobin 8.4 g/dL (14.0-18.0); Lymphocytes 29 % (21-51); MDiff Complete? YES; Mean Corpuscular HGB CONC 33.6 g/dL (32.0-36.0); Mean Corpuscular Hemoglobin 30.5 pg (27.0-31.0); Mean Corpuscular Volume 90.7 fL (78.0-98.0); Mean Platelet Volume 7.7 fL (7.4-10.4); Monocytes 14 % (0-10); Neutrophil 55 % (42-75); Platelet Count 103 thou/uL (130-400); Platelet Morphology Comment Appears Decreased; RBC Distribution Width 13.1 % (11.5-14.5); RBC Morphology Normal; Red Blood Cell (RBC) Count 2.74 mill/uL (4.70-6.10); White Blood Cell (WBC) Count 4.8 thou/uL (4.8-10.8)
[2019-06-27] MEDS: HumaLOG 300 UNITS/3 ML VIAL SC PRN ×4 (05:45→22:24)
[2019-06-27] MEDS: Sodium Chloride 0.9% 1,000 ML IV SCH ×4 (06:45→19:22)
[2019-06-27] MEDS: Lisinopril/Hydrochlorothiazide 20/25 mg Tablet PO SCH (08:14)
[2019-06-27] MEDS: Enoxaparin Sodium 40 MG/0.4 ML SYRINGE SC SCH (08:16)
[2019-06-27] MEDS: Oxybutynin 5 MG TAB PO SCH ×2 (08:16→20:30)
[2019-06-27] MEDS ORDERED: hydrALAZINE 20 MG/ML VIAL SLOW IVP PRN (10:38)
--- NOTE | 2019-06-27 11:00 | PDOC.HOSPP ---
- Subjective Subjective: Patient seen and examined. Patient states that he no longer having fever/ chills after antibiotics started. Overall feeling much better. Patient does complain of chronic right posterior leg numbness/ tingling and pain consistent with sciatica. - Objective Vital Signs & Weight: Vital Signs (12 hours) Temp Pulse Resp BP BP Pulse Ox 06/27/19 08:14 88 118/56 L 06/27/19 08:00 98.1 F 88 18 118/56 L 100 06/27/19 03:40 97.9 F 77 16 118/59 L 93 L 06/26/19 23:00 97 Weight Weight 209 lb 11.2 oz I&O: 06/26/19 06/27/19 06/28/19 06:59 06:59 06:59 Intake Total 878 Balance 878 Result Diagrams: 06/27/19 04:26 06/27/19 04:26 Radiology Reviewed by me: Yes (CXR reviewed) ROS - Medication Medications: Active Medications Generic Name Dose Route Start Last Admin Trade Name Freq PRN Reason Stop Dose Admin Hydrocodone Bitart/Acetaminophen 2 tab 06/27/19 02:05 06/27/19 08:13 [place] 5/325 PO 2 tab Q4H PRN Administration Pain (5-8) Enoxaparin Sodium 40 mg 06/27/19 09:00 06/27/19 08:16 Lovenox SC 40 mg 0900 LIDYA Administration Lisinopril/HCTZ 1 tab 06/27/19 09:00 06/27/19 08:14 Prinizide 20-25 PO 1 tab DAILY LIDYA Administration Sodium Chloride 1,000 mls @ 120 mls/hr 06/26/19 22:25 06/27/19 10:29 Normal Saline 0.9% IV 06/28/19 08:40 1,000 mls .Q8H20M LIDYA Administration Cefepime HCl 2 gm/ Sodium 100 mls @ 200 mls/hr 06/27/19 04:00 06/27/19 03:45 Chloride IVPB 100 mls 0400,1200,2000 LIDYA Administration Insulin Human Lispro 0 units 06/27/19 02:09 06/27/19 05:45 Humalog SC 2 unit .MILD SLIDING SCALE PRN Administration Mild Correctional Scale Oxybutynin Chloride 5 mg 06/27/19 09:00 06/27/19 08:16 Ditropan PO 5 mg BID LIDYA Administration - Exam NAD, awake alert Eye: PERRL, anicteric sclera ENT: normocephalic atraumatic, moist mucosa Neck: supple, no lymphadenopathy Heart: RRR, no murmur, no gallops, no rubs Respiratory: CTAB, no wheezes, no rales, no ronchi Gastrointestinal: soft, non-tender, non-distended, normal bowel sounds, no rigidity Gastrointestinal - other findings: Right flank nephrostomy tube present. Healed midline incision. Extremities: no cyanosis, no edema Skin: normal turgor Neurological: CN's grossly intact, normal sensation to touch, no weakness Musculoskeletal: normal tone, no muscle wasting Psychiatric: normal affect, normal behavior, A&O x 3 Hosp A/P (1) Sepsis Code(s): A41.9 - SEPSIS, UNSPECIFIED ORGANISM Status: Acute (2) UTI (urinary tract infection) due to urinary indwelling catheter Code(s): T83.511A - I/I REACT D/T INDWELLING URETHRAL CATHETER, INIT; N39.0 - URINARY TRACT INFECTION, SITE NOT SPECIFIED Status: Acute (3) Hydronephrosis of right kidney Code(s): N13.30 - UNSPECIFIED HYDRONEPHROSIS Status: Chronic (4) Pelvic mass Code(s): R19.00 - INTRA-ABD AND PELVIC SWELLING, MASS AND LUMP, UNSP SITE Status: Chronic (5) Right leg weakness Code(s): R29.898 - OTH SYMPTOMS AND SIGNS INVOLVING THE MUSCULOSKELETAL SYSTEM Status: Chronic - Plan Plan: Medical oncology floor Oncology consultation Broad spectrum ABX Sepsis protocol IV fluid resuscitation UA/ culture from both nephrostomy tube and clean catch urine Start Gabapentin for neuropathic pain associated with sciatica, recommended daily sciatica specific stretching Symptomatic therapy for N/v as needed GI and DVT PPX
[2019-06-27] MEDS ORDERED: Bisacodyl 5 MG TAB PO PRN (11:07)
[2019-06-27] MEDS ORDERED: Senokot S 8.6-50 MG TAB PO PRN (11:07)
[2019-06-27] MEDS ORDERED: Famotidine 20 MG TAB PO PRN (11:07)
[2019-06-27] MEDS ORDERED: Acetaminophen 650 MG Suppository PR PRN (11:07)
[2019-06-27] MEDS: Gabapentin 300 MG CAP PO SCH ×2 (16:18→20:30)
[2019-06-27] MEDS ORDERED: Prevnar 13-Val Conj/PF 0.5 ML SYRINGE IM ONE (21:00)
[2019-06-28] MEDS: Cefepime 2 GM in Sodium Chloride 0.9% 100 ML IVPB SCH ×3 (04:04→20:08)
[2019-06-28] MEDS: HYDROcodone/Acetaminophen 5/325 mg Tablet PO PRN ×4 (04:04→23:33)
[2019-06-28] MEDS: Sodium Chloride 0.9% 1,000 ML IV SCH (05:36)
[2019-06-28 06:42] LABS: Anion Gap 12 mmol/L (10-20); BUN (Urea Nitrogen) 16 mg/dL (8.9-20.6); Calc. Creatinine Clearance 140 mL/min (70-130); Carbon Dioxide 22 mmol/L (22-29); Chloride 103 mmol/L (98-107); Estimated GFR-MDRD Greater than 90; Glucose 113 mg/dL (70-105); Sodium 133 mmol/L (136-145)
[2019-06-28 06:48] LABS: Band 6 % (5-11); Hemoglobin 8.2 g/dL (14.0-18.0); Lymphocytes 48 % (21-51); MDiff Complete? YES; Mean Corpuscular HGB CONC 33.9 g/dL (32.0-36.0); Mean Corpuscular Hemoglobin 30.1 pg (27.0-31.0); Mean Corpuscular Volume 88.9 fL (78.0-98.0); Mean Platelet Volume 8.3 fL (7.4-10.4); Metamyelocyte 1 % (0-0); Monocytes 23 % (0-10); Neutrophil 21 % (42-75); Platelet Count 128 thou/uL (130-400); Platelet Morphology Comment Appears Adequate; RBC Distribution Width 13.4 % (11.5-14.5); Reactive Lymphocytes 1 % (0-10); Red Blood Cell (RBC) Count 2.71 mill/uL (4.70-6.10)
[2019-06-28] MEDS: HumaLOG 300 UNITS/3 ML VIAL SC PRN ×3 (06:58→17:46)
[2019-06-28] MEDS: Gabapentin 300 MG CAP PO SCH ×3 (10:13→20:11)
[2019-06-28] MEDS: Oxybutynin 5 MG TAB PO SCH ×2 (10:13→20:10)
[2019-06-28] MEDS: Lisinopril/Hydrochlorothiazide 20/25 mg Tablet PO SCH (10:13)
[2019-06-28] MEDS: Morphine ER 15 MG TAB PO SCH ×2 (10:14→20:10)
[2019-06-28] MEDS: Enoxaparin Sodium 40 MG/0.4 ML SYRINGE SC SCH (10:15)
--- NOTE | 2019-06-28 12:53 | PDOC.HOSPP ---
- Subjective Subjective: Patient seen and examined. Family at bedside. Patient continues to improve on IV antibiotics. Still with sciatic type leg pains, patient states improved with gabapentin. Overal patient feeling better. - Objective Vital Signs & Weight: Vital Signs (12 hours) Temp Pulse Resp BP BP Pulse Ox 06/28/19 10:13 87 140/79 06/28/19 08:00 97 06/28/19 07:52 97.8 F 87 18 140/79 97 Weight Weight 209 lb 11.2 oz I&O: 06/27/19 06/28/19 06/29/19 06:59 06:59 06:59 Intake Total 1378 Output Total 725 Balance 653 Result Diagrams: 06/28/19 05:31 06/28/19 05:31 Additional Labs: Accuchecks 06/28/19 06/27/19 06/27/19 06:13 22:21 16:23 POC Glucose 174 H 229 H 163 H 06/27/19 12:07 POC Glucose 254 H ROS - Medication Medications: Active Medications Generic Name Dose Route Start Last Admin Trade Name Freq PRN Reason Stop Dose Admin Hydrocodone Bitart/Acetaminophen 2 tab 06/27/19 02:05 06/28/19 12:46 [place] 5/325 PO 2 tab Q4H PRN Administration Pain (5-8) Enoxaparin Sodium 40 mg 06/27/19 09:00 06/28/19 10:15 Lovenox SC 40 mg 0900 LIDYA Administration Gabapentin 300 mg 06/27/19 15:00 06/28/19 10:13 Neurontin PO 300 mg TID LIDYA Administration Lisinopril/HCTZ 1 tab 06/27/19 09:00 06/28/19 10:13 Prinizide 20-25 PO 1 tab DAILY LIDYA Administration Cefepime HCl 2 gm/ Sodium 100 mls @ 200 mls/hr 06/27/19 04:00 06/28/19 12:09 Chloride IVPB 100 mls 0400,1200,2000 LIDYA Administration Insulin Human Lispro 0 units 06/27/19 02:09 06/28/19 12:08 Humalog SC 3 unit .MILD SLIDING SCALE PRN Administration Mild Correctional Scale Morphine Sulfate 15 mg 06/28/19 09:00 06/28/19 10:14 Ms Contin PO 15 mg Q12HR LIDYA Administration Oxybutynin Chloride 5 mg 06/27/19 09:00 06/28/19 10:13 Ditropan PO 5 mg BID LIDYA Administration Sodium Chloride 10 ml 06/27/19 21:00 06/28/19 10:15 Flush - Normal Saline IVF 10 ml Q12HR LIDYA Administration Sodium Chloride 10 ml 06/27/19 10:42 06/28/19 06:57 Flush - Normal Saline IVF 10 ml PRN PRN Administration Saline Flush - Exam NAD, awake alert Eye: PERRL, anicteric sclera ENT: no oropharyngeal lesions, moist mucosa Neck: supple, symmetric, no carotid bruit Heart: RRR, no murmur, no gallops, no rubs Respiratory: CTAB, no wheezes, no rales, no ronchi Gastrointestinal: soft, non-tender, non-distended, normal bowel sounds Extremities: no edema Neurological: CN's grossly intact, no weakness, no focal deficits, no new deficit Musculoskeletal: normal tone, normal strength. negative: generalized weakness Psychiatric: normal affect, A&O x 3 Hosp A/P (1) Sepsis Code(s): A41.9 - SEPSIS, UNSPECIFIED ORGANISM Status: Acute (2) UTI (urinary tract infection) due to urinary indwelling catheter Code(s): T83.511A - I/I REACT D/T INDWELLING URETHRAL CATHETER, INIT; N39.0 - URINARY TRACT INFECTION, SITE NOT SPECIFIED Status: Acute (3) Hydronephrosis of right kidney Code(s): N13.30 - UNSPECIFIED HYDRONEPHROSIS Status: Chronic (4) Pelvic mass Code(s): R19.00 - INTRA-ABD AND PELVIC SWELLING, MASS AND LUMP, UNSP SITE Status: Chronic (5) Right leg weakness Code(s): R29.898 - OTH SYMPTOMS AND SIGNS INVOLVING THE MUSCULOSKELETAL SYSTEM Status: Chronic - Plan Plan: Medical oncology floor ID consultation, recommendations appreciated. Oncology consultation, recommendations appreciated. Culture from nephrostomy tube with pseudomonas, responding to Meropenem - pending sensitivity In some patients dual antibiotic coverage for pseudomonas is indicated Broad spectrum ABX Sepsis protocol Continue Gabapentin for neuropathic pain associated with sciatica, recommended daily sciatica specific stretching Symptomatic therapy for N/v as needed GI and DVT PPX
--- NOTE | 2019-06-28 16:38 | CON ---
DATE OF CONSULTATION: 06/28/2019 HISTORY OF PRESENT ILLNESS: Mr. Acevedo is 44-year-old male with a history of metastatic neuroendocrine malignancy, status post right nephrostomy tube placement for ureteral obstruction secondary to tumor. He presented to the hospital for complaints of fever after a cycle of chemotherapy, which was given approximately 2 weeks ago. His fever at home was up to 101, however he has remained afebrile in-house. He also complains of chronic right lower extremity pain, which seems neuropathic in nature and he states he did not have any good medication at home to take. He states he has trouble walking even and has almost fallen a couple of times. The pain seems severe, but does seem to respond to hydrocodone in the hospital. He denies any fevers here. No chills. No nausea or vomiting. He denies shortness of breath or cough. No dysuria or hematuria. PAST MEDICAL HISTORY: 1. Metastatic neuroendocrine tumor, currently undergoing chemotherapy for palliation. 2. Type 2 diabetes. 3. Hypertension. CURRENT MEDICATIONS: 1. Hydrocodone 5/325 two p.o. q.4 hours p.r.n. 2. Tylenol p.r.n. 3. Dulcolax p.r.n. 4. Cefepime 2 g IV q.8 hours. 5. Lovenox 40 mg subcu daily. 6. Pepcid 20 mg p.o. b.i.d. 7. Gabapentin 300 mg p.o. t.i.d. 8. Glucagon p.r.n. 9. Lisinopril/hydrochlorothiazide 20/25 one p.o. daily. 10. Hydralazine 10 mg IV q.4 hours p.r.n. 11. Insulin lispro sliding scale. 12. Zofran 4 mg IV q.6 hours p.r.n. 13. Zofran ODT 4 mg sublingual q.6 hours p.r.n. 14. Ditropan 5 mg p.o. b.i.d. 15. MiraLAX 17 g p.o. daily. 16. Senokot two tablets p.o. b.i.d. ALLERGIES: NO KNOWN DRUG ALLERGIES. SOCIAL HISTORY: He is here with his daughter, who is young but interpreting for him. He speaks minimal Stateless. Denies anything other than occasional alcohol use. No tobacco use. REVIEW OF SYSTEMS: Otherwise, 10-point review of systems is negative. FAMILY HISTORY: Negative. PHYSICAL EXAMINATION: VITAL SIGNS: Temperature 97.8, pulse 87, respirations 16 to 18, O2 saturation 97% on room air, and blood pressure 123 to 140 over 58 to 79. GENERAL: He is sitting up in bed, eating breakfast, in no acute distress. HEENT: Extraocular muscles are intact. Pupils are equal, round, and reactive to light. He has no oral cavity lesions. NECK: Supple without lymphadenopathy. CARDIOVASCULAR: Regular rhythm. LUNGS: Clear to auscultation. ABDOMEN: Hypoactive bowel sounds. Soft, nontender, and nondistended. EXTREMITIES: No edema. He does have the percutaneous nephrostomy tube intact and in place with clear urine. He does have pain to palpation over his right buttock and the back of his right leg, but no erythema or edema. LABORATORY DATA: White blood cell count on admission 5.7, now 3.0, hemoglobin 8.2, platelets 128 with 21% neutrophils and 6% bands. Chest x-ray done on admission shows no acute intrathoracic abnormality. ASSESSMENT: Mr. Williams Acevedo is a 44-year-old male with: 1. Fever, not neutropenic, now afebrile. 2. Right lower extremity pain, neuropathic. 3. Ureteral obstruction, status post percutaneous nephrostomy. PLAN: 1. He has remained afebrile in-house, and his blood cultures are negative, I would recommend stopping cefepime. I will leave it up to the primary team if they would like to put him on oral antibiotics, but at this point it seems unnecessary. 2. He has chronic pain, has been taking hydrocodone while here, I will add MS Contin 15 mg p.o. b.i.d. and he can be sent home on this. 3. He can be sent home to follow up with us as an outpatient. Job ID: [id number] [facility]
--- NOTE | 2019-06-28 17:42 | CT ---
CT Stone Protocol HISTORY: Follow-up of right-sided hydronephrosis. COMPARISON: 05/18/2019 study. FINDINGS: The thick-walled cavitary right lower lobe lung mass is again identified measuring 3.1 cm. It appears fairly similar as compared to the prior exam. The hypodense lesion within the right lobe of the liver is more difficult to characterize than on the previous examination measures approximately 4.2 cm, and may be slightly larger as compared to the prior exam. The spleen pancreas and gallbladder regions appear unremarkable. The right and left adrenal glands are normal in appearance. There is development of some minimal left -sided hydronephrosis. The left ureter is mildly dilated to the bladder level. A right-sided nephrostomy tube is present, the right sided hydronephrosis has completely decompressed. The right re nal cyst is stable. Fat-containing ventral hernias are again demonstrated. No significant periaortic adenopathy. The right-sided pelvic mass shows worsening bony destructive changes of the sacrum and worsening lyti c bony change involving the right side of the L5 vertebral body, this was very subtly present on the previous exam. The pelvic mass extends out the sciatic notch. It displaces the bladder to the lef t. The mass is difficult to measure but the mass does appear to have more superior extension with more soft tissue change adjacent to the L5 vertebral body on the right side. The main bulk of the mas s is similar to the previous study measuring approximately 11 cm in AP dimension. There is worsening lytic bony destructive change involving the right iliac bone with changes along the superio r acetabulum and the posterior column of the acetabulum. IMPRESSION: 1. Right-sided nephrostomy tube in place, the right sided hydronephrosis has resolved with placement of the tube. 2. Development of some mild left-sided hydronephrosis. 3. Slight enlargement to the pelvic mass with worsening bony destructive changes of the right side of the L5 vertebral body, the sacrum and the right iliac bone.
--- NOTE | 2019-06-28 17:50 | CON ---
DATE OF CONSULTATION: 06/28/2019 REASON FOR CONSULTATION: Fever. HISTORY OF PRESENT ILLNESS: A 44-year-old with a history of testicular cancer, treated in the past and a newly diagnosed neuroendocrine tumor of uncertain primary site, possibly gastrointestinal, who presented with pain in the right side of the pelvis and right lower extremity with weakness of the right lower extremity and loss of sensation associated with obstructive uropathy, which required placement of percutaneous nephrostomy tube by Radiology. The patient developed fever at home up to 101, was brought in. He otherwise feels well. He is receiving chemotherapy under the supervision of Dr. Booker. No headaches, visual symptoms, sore throat, odynophagia, or dysphagia. No vomiting. No cough, sputum production, or chest pain. No back pain. No abdominal pain. He is able to urinate without difficulty. His mobility is with a walker using his left lower extremity. He does not have any strength in the right lower extremity. PAST MEDICAL HISTORY: Type 2 diabetes, hypertension, testicular cancer, and neuroendocrine tumor of uncertain primary site, possibly gastrointestinal, currently on chemo. SOCIAL HISTORY: Originally from [place]. Drinks occasionally. Smokes daily. Lives with sister. FAMILY HISTORY: Uterine cancer in the mother. ALLERGIES: NONE. CURRENT MEDICATIONS: 1. Tylenol. 2. [place]. 3. Dulcolax. 4. Cefepime. 5. Lovenox. 6. Pepcid. 7. Neurontin. 8. Lisinopril. 9. Hydrochlorothiazide. 10. Insulin. 11. Zofran. 12. Ditropan. 13. MiraLAX. PHYSICAL EXAMINATION: VITAL SIGNS: T-max 99.2, blood pressure 140/79, pulse 87, respirations 18, and O2 saturation 97%. SKIN: Normal. Peripheral IV access. Percutaneous nephrostomy in the right flank area. No lymphadenopathy or alopecia. HEENT: Ocular movements conjugate. Oral cavity normal. NECK: Supple. LUNGS: Symmetric. Clear breath sounds. HEART: S1 and S2, regular rate. No S3 or S4. ABDOMEN: Soft, not distended or tender. Somewhat globose. No ascites. No bladder distention. GENITAL: Normal. EXTREMITIES: The right lower extremity is paralyzed without sensation. Pulses are 1+ in dorsalis pedis. His other three limbs move well. NEUROLOGIC: His cognitive function appears normal. Speech is normal. Recollection normal. LABORATORY DATA: White cell count 5.7, now 3.0; total neutrophil count at this time is 750. Sodium 133, creatinine 0.89, AST 9, ALT 8, alkaline phosphatase 90, albumin 3.5. Pathology from May identified high-grade neuroendocrine carcinoma. ASSESSMENT: High-grade neuroendocrine carcinoma with local invasiveness towards retroperitoneal area with obstructive uropathy and radiculopathy with loss of function of the right lower extremity and lack of sensation there as well. Undergoing chemotherapy with moderate neutropenia. The nephrostomy is the more likely culprit that led to the clinical findings. Pseudomonas aeruginosa and gram-negative jonah retrieved with pending susceptibilities, currently the patient is receiving cefepime. DISCUSSION: The patient will continue on cefepime until final results of the susceptibility profile seems to be responding to therapy. The last abdomen and pelvis CT done on 05/18 demonstrated nonspecific right pelvic mass invading the sacrum and right iliac bone, metastatic disease to liver with obstruction of the distal right ureter with moderate right hydronephrosis. We will repeat the CT stone protocol to follow up that finding and see if there is reduction in the hydronephrosis. Those nephrostomy tubes usually require replacement periodically. Await on susceptibility results and then hopefully we will be able to switch him to oral quinolone for discharge planning. Job ID: [id number] [facility]
[2019-06-29] MEDS: Cefepime 2 GM in Sodium Chloride 0.9% 100 ML IVPB SCH ×2 (04:02→13:39)
[2019-06-29] MEDS: HYDROcodone/Acetaminophen 5/325 mg Tablet PO PRN ×4 (04:04→18:30)
[2019-06-29 04:39] LABS: Anion Gap 13 mmol/L (10-20); BUN (Urea Nitrogen) 17 mg/dL (8.9-20.6); Calc. Creatinine Clearance 115 mL/min (70-130); Carbon Dioxide 25 mmol/L (22-29); Chloride 102 mmol/L (98-107); Estimated GFR-MDRD 74; Potassium 3.9 mmol/L (3.5-5.1); Sodium 136 mmol/L (136-145)
[2019-06-29 04:40] LABS: Calcium 9.5 mg/dL (7.8-10.44); Glucose 216 mg/dL (70-105)
[2019-06-29 05:09] LABS: Band 5 % (5-11); Eosinophils 1 % (0-10); Hemoglobin 8.2 g/dL (14.0-18.0); Hypochromia SLIGHT = 6-15 cells (100X) (0-5/hpf); Lymphocytes 55 % (21-51); MDiff Complete? YES; Mean Corpuscular HGB CONC 34.6 g/dL (32.0-36.0); Mean Corpuscular Hemoglobin 30.8 pg (27.0-31.0); Mean Corpuscular Volume 89.2 fL (78.0-98.0); Mean Platelet Volume 7.4 fL (7.4-10.4); Monocytes 21 % (0-10); Neutrophil 17 % (42-75); Nucleated RBC 1 % (0); Platelet Count 170 thou/uL (130-400); Platelet Morphology Comment Appears Adequate; RBC Distribution Width 13.3 % (11.5-14.5); Red Blood Cell (RBC) Count 2.67 mill/uL (4.70-6.10); White Blood Cell (WBC) Count 3.6 thou/uL (4.8-10.8)
[2019-06-29] MEDS: HumaLOG 300 UNITS/3 ML VIAL SC PRN ×2 (06:16→18:16)
[2019-06-29] MEDS: Lisinopril/Hydrochlorothiazide 20/25 mg Tablet PO SCH (09:13)
[2019-06-29] MEDS: Enoxaparin Sodium 40 MG/0.4 ML SYRINGE SC SCH (09:13)
[2019-06-29] MEDS: Gabapentin 300 MG CAP PO SCH ×2 (09:17→18:16)
[2019-06-29] MEDS: Morphine ER 15 MG TAB PO SCH (09:18)
[2019-06-29] MEDS: Oxybutynin 5 MG TAB PO SCH (09:18)
[2019-06-29 12:08] LABS: INR-International Normal Ratio 1.1; Prothrombin Time 13.8 SEC (12.0-14.7)
--- NOTE | 2019-06-29 15:38 | SPC ---
EXAM: SPC EXCHANGE NEPHROSTOMY CATH PROVIDED CLINICAL HISTORY: Right ureteral obstruction secondary to pelvic mass. Right nephrostomy tube is noted in place. Patien t has right hydronephrosis with recent urinary tract infection positive for pseudomonas. Replacement of the nephrostomy tube was requested. COMPARISON: None TECHNIQUE: After informed consent was obtained, patient was placed on the angiography table in the prone positio n. The indwelling right nephrostomy tube and surrounding area were meticulously prepped and draped in usual sterile fashion. The nephrostomy tube was punctured with a 20-gauge needle, and a nephrostogram was performed. The cat heter was cut and exchanged over a 0.035 inch Animatu Multimedi[employer] guidewire for a new 8 Irish percutaneous nephrostomy tube. The distal portion of the nephrostomy tube was positioned within the renal pelvis. A nephrostogram confirms placement within the renal pelvis. The catheter was flushed and then placed to gravity drainage. The catheter was sutured in place utilizing 2-0 Ethilon suture material. A dry sterile dressing was placed. The patient tolerated the procedure well and without immediate complication. Fluoroscopy: Time: 2.7 minutes Total dose: 13,646 mGy square centimeter. IMPRESSION: Technically successful right nephrostomy tube replacement.
[2019-06-29 17:57] VITALS: BP 141/78; TEMP 98.6
[2019-06-29] MEDS ORDERED: Prevnar 13-Val Conj/PF 0.5 ML SYRINGE IM ONE (18:30)
--- NOTE | 2019-06-30 04:31 | DIS ---
DATE OF ADMISSION: 06/26/2019 DATE OF DISCHARGE: 06/29/2019 REASON FOR HOSPITALIZATION: Fever in a patient on chemotherapy. SIGNIFICANT FINDINGS: The patient found to have a complicated urinary tract infection with Pseudomonas aeruginosa growing from right-sided nephrostomy tube. PROCEDURES PERFORMED: The patient had a right nephrostomy tube exchange on 06/29/2019, please see full operative report for details. TREATMENTS RENDERED: The patient received IV antibiotics, IV fluid resuscitation, and pain control. CONDITION ON DISCHARGE: Stable. SPECIFIC INSTRUCTIONS FOR THE PATIENT AND FAMILY: 1. The patient is to complete a full course of oral antibiotics of ciprofloxacin 500 mg one tablet p.o. twice per day for an additional 6 days, 12 tablets. 2. Start gabapentin 300 mg one tablet p.o. t.i.d., #90, for neuropathic pain. 3. The patient is to follow up with Oncology in the next 5 to 7 days. 4. The patient is to follow up with primary care physician in the next 5 to 7 days. 5. The patient is to follow up with infectious disease specialist in the next 5 to 7 days. The patient is to return to acute care hospital immediately if any signs or symptoms return, worsen, or any other new symptoms occur. DISCHARGE MEDICATIONS: The patient is to resume all home medications as directed with the following new medications; 1. Ciprofloxacin 500 mg one tablet p.o. b.i.d. for 6 days. 2. Gabapentin 300 mg one tablet p.o. t.i.d. HISTORY OF PRESENT ILLNESS: Mr. 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 The patient is started on broad- spectrum antibiotics, IV fluid resuscitation, with consultations to Oncology and Infectious Disease specialist requested. The patient had cultures from the urine and nephrostomy tubes. Nephrostomy tube culture did demonstrate growth of Pseudomonas aeruginosa. Thankfully, Pseudomonas aeruginosa pansensitive with being sensitive to oral medications of ciprofloxacin. Infectious Disease specialist recommending exchange of nephrostomy tube, as concern for colonization with Pseudomonas aeruginosa may make it difficult for the patient to adequately clear the infection. The patient had successful exchange of nephrostomy tube on 06/29/2019. The patient tolerated the procedure well without intraoperative complications. Postoperatively, the patient tolerating diet, ambulating at his baseline, and clinically stable. The patient was recommended safe for discharge by Infectious Disease specialist on oral antibiotics. The patient is recommended safe by Oncology with close followup in the outpatient setting. The patient was recommended to complete a full course of oral antibiotics for resolution of the infection. The patient is recommended to follow up with Oncology, Infectious Disease, and Primary Care Physician in the next 1 to 2 weeks-or return to acute care hospital immediately if unable to be seen. The patient was explicitly informed to return to acute care hospital immediately if signs or symptoms return, worsen, or any other new symptoms occur. Greater than 37 minutes spent coordinating and planning discharge. Job ID: [id number] [facility]
== END 2019-06-29 18:41 | disposition home or self-care (01) | DRG 698 ==
LOC: ERS 19:17 → ONC 20:42
PROVIDERS: ADMIT Hospitalist; ATTEND Hospitalist
PROC: 0T25X0Z Change Drainage Device in Kidney, External Approach (ICD-10-PCS; principal; 2019-06-29)
DX: T83.511A Infection and inflammatory reaction due to indwelling urethral catheter, initial encounter (principal); A41.52 Sepsis due to Pseudomonas; E87.1 Hypo-osmolality and hyponatremia; C16.9 Malignant neoplasm of stomach, unspecified; C64.1 Malignant neoplasm of right kidney, except renal pelvis; N13.6 Pyonephrosis; D70.9 Neutropenia, unspecified; R50.81 Fever presenting with conditions classified elsewhere; E11.65 Type 2 diabetes mellitus with hyperglycemia; I10 Essential (primary) hypertension; R19.00 Intra-abdominal and pelvic swelling, mass and lump, unspecified site; D50.9 Iron deficiency anemia, unspecified; D3A.8 Other benign neuroendocrine tumors; R29.898 Other symptoms and signs involving the musculoskeletal system; E78.5 Hyperlipidemia, unspecified; D63.0 Anemia in neoplastic disease; G89.4 Chronic pain syndrome; F17.210 Nicotine dependence, cigarettes, uncomplicated; Z79.4 Long term (current) use of insulin
CPT/HCPCS: 36415; 36416; 50431; 50435; 71045; 74176; 75984; 80048; 80053; 81003; 81015; 83605; 85025; 85610; 87040; 87077; 87086; 87186; 90471; 90670; 96365; 96367; 96375; C1729; G0009; J0692; J1650; J2270; J3370; J3490

== ENCOUNTER 2019-07-05 09:57 | Day surgery (SDC) | payer SELFPAY ==
[~2019-07-05 09:57] MED LIST changes: -ATEZOLIZUMAB 1,200 MG in Sodium Chloride 0.9% 250 ML 250 ML IV SCH; -ATEZOLIZUMAB 1,200 MG in Sodium Chloride 0.9% 250 ML 250 ML IVPB SCH; +CARBOplatin 550 MG in Sodium Chloride 0.9% 250 ML 250 ML IVPB SCH; +Palonosetron HCl 0.25 MG in Sodium Chloride 0.9% 50 ML IVPB SCH; +Sodium Chloride 0.9% 30 ML ONE
[2019-07-05 10:13] VITALS: BP 122/66; TEMP 98.2
== END 2019-07-05 16:17 | disposition home or self-care (01) ==
LOC: ONC/OP 09:57
PROVIDERS: ATTEND Internal Medicine Hematology & Oncology
DX: Z51.11 Encounter for antineoplastic chemotherapy (principal); C34.31 Malignant neoplasm of lower lobe, right bronchus or lung
CPT/HCPCS: 96375; 96413; 96417; J1100; J2469; J7050; J9045

== ENCOUNTER 2019-07-06 09:34 | Day surgery (SDC) | payer SELFPAY ==
[~2019-07-06 09:34] MED LIST changes: -CARBOplatin 550 MG in Sodium Chloride 0.9% 250 ML 250 ML IVPB SCH; -Palonosetron HCl 0.25 MG in Sodium Chloride 0.9% 50 ML IVPB SCH; -Sodium Chloride 0.9% 30 ML ONE
[2019-07-06] MEDS ORDERED: Sodium Chloride 0.9% 20 ML ONE (09:53)
[2019-07-06 10:09] VITALS: BP 121/57; TEMP 98.5
== END 2019-07-06 12:37 | disposition home or self-care (01) ==
LOC: ONC/OP 09:34
PROVIDERS: ATTEND Internal Medicine Hematology & Oncology
DX: Z51.11 Encounter for antineoplastic chemotherapy (principal); C34.31 Malignant neoplasm of lower lobe, right bronchus or lung
CPT/HCPCS: 96413; J7050

== ENCOUNTER 2019-07-07 08:20 | Day surgery (SDC) | payer SELFPAY ==
[~2019-07-07 08:20] MED LIST changes: +ATEZOLIZUMAB 1,200 MG in Sodium Chloride 0.9% 250 ML 250 ML IVPB SCH
[2019-07-07] MEDS ORDERED: Sodium Chloride 0.9% 20 ML ONE (08:53)
[2019-07-07 08:55] VITALS: BP 120/58; TEMP 98.4
== END 2019-07-07 14:00 | disposition home or self-care (01) ==
LOC: ONC/OP 08:20
PROVIDERS: ATTEND Internal Medicine Hematology & Oncology
DX: Z51.12 Encounter for antineoplastic immunotherapy (principal); C34.31 Malignant neoplasm of lower lobe, right bronchus or lung
CPT/HCPCS: 96413; 96417; J7050

== ENCOUNTER 2019-07-16 08:40 | Outpatient (CLI) | payer SELFPAY ==
[2019-07-16] MEDS ORDERED: Iopamidol 370 76% 100 ML VIAL ONE (12:45)
--- NOTE | 2019-07-16 13:11 | CT ---
CT OF THE ABDOMEN AND PELVIS WITH IV CONTRAST INDICATION: 44-year-old male with lung cancer and liver metastases COMPARISON: CT the abdomen and pelvis dated May 18, 2019 and June 28, 2019 FINDINGS: ABDOMEN: Lung bases: Cavitary lesion involving the posterior medial right lower lobe is increased size now ling suring 3.1 cm were previously measured 2.5 cm. Liver: The right hepatic lobe metastatic lesions have increased in size. The lesions measure 4.5 cm w ere previously measured 3.4 cm. There is a new suspected lesion within the right hepatic lobe image 22 of series 3 measuring 1.3 cm. Previously seen lesion within segment 6 of the right hepatic lobe me asuring 8 mm now measures 1.2 cm. Gallbladder: Normal appearing. Pancreas: Normal. Adrenal glands: Normal. Spleen: Normal. Kidneys: There is a percutaneous drain within the right renal collecting system. The right renal erik ecting system is decompressed. There is stable right renal cyst. There is stable mild left hydronephrosis. Retroperitoneum of the upper abdomen: No lymphadenopathy or free fluid is identified. Pelvis: Small and large bowel: There is a mild amount retained stool within the colon. There are stable anter ior abdominal wall hernias containing fat. Bladder: There is posterior lateral involvement of the bladder from the large right-sided pelvic mass which appears relatively stable. Rectal and perirectal soft tissues:Normal. Reproductive structures: Normal. Free fluid in pelvis: No free fluid is evident. Lymphadenopathy pelvis: Prominent right obturator internus lymph nodes are enlarged measuring 3.4 cm were previously the lymph node measured 2.9 cm. An additional enlarged lymph node now measures 2.4 cm were previously it measured 1.9 cm. The large right-sided pelvic soft tissue mass likely related t o extra osseous extension from a lytic lesion involving the sacrum and L5 vertebral level is relatively stable size measuring 10.1 x 9.3 cm were previously it measured 11.0 x 9 cm. Osseous structures: There is a stable pathologic fracture involving the lytic lesion of the right asp ect of the L5 vertebra extending into the right pedicle. The large lytic lesion involving the sacrum and right ilium is again present. Healed deformity involving the left inferior pubic ramus is again noted. Destructive osteolysis of the right sacral spinous process is stable There is scattered degenerative and osteoarthritic changes. IMPRESSION: 1. Worsening primary and metastatic disease of the lower chest, abdomen and pelvis. The cavitary lesi on in the right lower lobe has increased in size. There is worsening hepatic metastatic disease. The extensive osseous metastatic disease with large periosseous soft tissue masses within the pelvis persist. There is worsening lymphadenopathy within the right hemipelvis. 2. Stable left hydronephrosis. Stable right percutaneous nephrostomy tube with decompression of the r ight renal collecting system.
== END 2019-07-16 08:41 | disposition home or self-care (01) ==
LOC: CT 08:40
PROVIDERS: ATTEND Internal Medicine Hematology & Oncology
DX: C34.31 Malignant neoplasm of lower lobe, right bronchus or lung (principal); C78.7 Secondary malignant neoplasm of liver and intrahepatic bile duct; C79.51 Secondary malignant neoplasm of bone; C77.5 Secondary and unspecified malignant neoplasm of intrapelvic lymph nodes; N13.30 Unspecified hydronephrosis; Z93.6 Other artificial openings of urinary tract status
CPT/HCPCS: 74177; Q9967

== ENCOUNTER 2019-07-27 18:23 | Emergency (ER) | payer SELFPAY ==
[~2019-07-27 18:23] MED LIST changes: -ATEZOLIZUMAB 1,200 MG in Sodium Chloride 0.9% 250 ML 250 ML IVPB SCH; -Etoposide 200 MG in Sodium Chloride 0.9% 500 ML IV SCH; +ISOVUE-370 76%-LOCM 1 ML ONE
[2019-07-27 19:14] LABS: #Basophils 0.1 thou/uL (0.0-0.2); #Eosinphils 0.1 thou/uL (0.0-0.7); #Lymphocytes 1.4 thou/uL (1.20-3.40); #Monocytes 1.4 thou/uL (0.11-0.59); #Neutrophils 7.9 thou/uL (1.40-6.50); %Basophils 0.5 % (0.0-1.0); %Eosinophils 0.6 % (0.0-10.0); %Lymphocytes 12.7 % (21.0-51.0); %Monocytes 12.8 % (0.0-10.0); %Neutrophils 73.3 % (42.0-75.0); Hemoglobin 8.3 g/dL (14.0-18.0); Mean Corpuscular HGB CONC 33.8 g/dL (32.0-36.0); Mean Corpuscular Hemoglobin 31.1 pg (27.0-31.0); Mean Corpuscular Volume 92.2 fL (78.0-98.0); Mean Platelet Volume 7.2 fL (7.4-10.4); Platelet Count 371 thou/uL (130-400); RBC Distribution Width 15.2 % (11.5-14.5); Red Blood Cell (RBC) Count 2.67 mill/uL (4.70-6.10); White Blood Cell (WBC) Count 10.8 thou/uL (4.8-10.8)
[2019-07-27] MEDS ORDERED: Acetaminophen 500 MG TAB ONE (19:36)
--- NOTE | 2019-07-27 19:44 | CT ---
EXAM: ABDOMEN CT WITH CONTRAST PELVIC CT WITH CONTRAST 07/27/19 HISTORY: Lung cancer. Hepatic metastases. Fever. FINDINGS: ABDOMEN CT: Lung bases are clear. Normal heart size. Normal caliber aorta. Contracted gallbladder likely due to nonfasting state. Patent portal vein. Redemonstration of a hypodensity in the right hepatic lobe, compatible with a known metastatic focus. The lesion measures 4.8 cm. There is a second smaller hypodensity in the right hepatic lobe measurin g 0.8 cm. Both lesions were noted on the previous exam. Subtle hypodensity in the left hepatic lobe i s also identified, measuring 0.7 cm. Spleen, pancreas and adrenal glands have stable enhancement. Redemonstration of a percutaneous nephrostomy in the right renal pelvis. There is stable mild dilatat ion of the left intra and extrarenal collecting system. No evidence of bilateral obstructive uropathy . Stable hypodensity emanating from the right renal cortex, compatible with a cyst. No gastrohepatic, retrocrural or periportal lymphadenopathy. Nonspecific stranding of the abdominal mesentery. A small amount of fluid in both pericolic gutters. No mesenteric mass, free air or fluid collection. Ventral abdominal wall hernia containing mesenteric fat is noted. Limited evaluation of the alimentary canal by the lack of oral contrast. Gastric mucosa, duodenum and multiple unremarkable small bowel loops. Unremarkable ileocecal junction. Findings suggesting previo us appendectomy. Fecal material in a nondistended, nondilated colon. Diverticulosis, without evidence of diverticulitis. CT PELVIS: Mild mucosal thickening of the urinary bladder. Redemonstration of extensive pelvic masses in the lef t and right hemipelvis. The soft tissue mass in the right hemipelvis measures 10.2 x 6.7 cm (previous ly measuring 6.7 x 10.0 cm). Additional enlarged right external iliac lymph nodes are once again demo nstrated without appreciable change. Shortest diameter of the largest right external iliac lymph node is 2.8 cm. OSSEOUS STRUCTURES: Redemonstration of extensive destructive changes involving the sacrum with replacement of a bone atte nuation with soft tissue attenuation. There is also metastatic lesions on the right at L5. With regards to the sacral ala, there is presumed encroachment secondary to multifocal sacral metasta ses. IMPRESSION: 1. No evidence of an infected fluid collection or abscess within the abdomen or pelvis. 2. Right sided percutaneous nephrostomy, unchanged. 3. Stable masses involving the pelvis with destructive changes of the sacrum as well as bulky ma ss/lymphadenopathy in the right hemipelvis. 4. Stable narrowing of the right and left sacral neural foramina. 5. Stable dilatation of the left intrarenal collecting system. 6. Stable hepatic metastases. POS: PPP
[2019-07-27 19:48] LABS: ALT (SGPT) 7 U/L (8-55); AST (SGOT) 14 U/L (5-34); Albumin 3.9 g/dL (3.5-5.0); Alkaline Phosphatase 92 U/L (40-150); Anion Gap 15 mmol/L (10-20); BUN (Urea Nitrogen) 19 mg/dL (8.9-20.6); Bilirubin, Total 0.3 mg/dL (0.2-1.2); Calc. Creatinine Clearance 0 mL/min (70-130); Calcium 9.9 mg/dL (7.8-10.44); Carbon Dioxide 23 mmol/L (22-29); Chloride 101 mmol/L (98-107); Estimated GFR-MDRD 55; Globulin 4.9 g/dL (2.4-3.5); Glucose 160 mg/dL (70-105); Potassium 4.5 mmol/L (3.5-5.1); Protein, Total 8.8 g/dL (6.0-8.3); Sodium 134 mmol/L (136-145)
[2019-07-27 20:21] LABS: Bilirubin Negative (Negative); Blood, Urine Negative (Negative); Clarity Clear (Clear); Glucose, Urine (Dipstick) 300 mg/dL (Negative); Leukocyte Negative Leu/uL (Negative); Nitrite Negative (Negative); Protein, Urine (Dipstick) 20 mg/dL (Neg-Trace); Urobilinogen Normal mg/dL (Less than 2)
--- NOTE | 2019-07-27 20:47 | RAD ---
ONE VIEW CHEST: 07/27/19 COMPARISON: 06/26/19. HISTORY: Fever. FINDINGS: Normal cardiac silhouette. Lungs and pleural spaces are clear. No pneumothorax or osseous abnormaliti es. IMPRESSION: No acute cardiopulmonary process. POS: PPP
--- NOTE | 2019-07-31 13:12 | EKG ---
Test Reason : Blood Pressure : / mmHG Vent. Rate : 103 BPM Atrial Rate : 103 BPM P-R Int : 162 ms QRS Dur : 094 ms QT Int : 338 ms P-R-T Axes : 038 -25 036 degrees QTc Int : 442 ms Sinus tachycardia Possible Left atrial enlargement Incomplete right bundle branch block Borderline ECG Confirmed by JAD GEORGE ([id number]), editor in chief newspaper [address] ([id number]) on 07/31/2019 1:12:36 PM Referred By: ARIEL Confirmed By:JAD GEORGE
== END 2019-07-27 21:56 | disposition home or self-care (01) ==
LOC: ERS 18:23
DX: R50.9 Fever, unspecified (principal); E11.9 Type 2 diabetes mellitus without complications; I10 Essential (primary) hypertension; F17.210 Nicotine dependence, cigarettes, uncomplicated; Z79.84 Long term (current) use of oral hypoglycemic drugs; Z79.899 Other long term (current) drug therapy
CPT/HCPCS: 71045; 74177; 80053; 81003; 83605; 85025; 87040; 87077; 87086; 87186; 87804; 93005; 96360; 96361; Q9966

== ENCOUNTER 2019-08-09 12:13 | Day surgery (SDC) | payer OTHER, SELFPAY ==
[~2019-08-09 12:13] MED LIST changes: -ISOVUE-370 76%-LOCM 1 ML ONE; +PACLitaxel 160 MG in Sodium Chloride 0.9% 250 ML 250 ML IVPB SCH
[2019-08-09 13:19] VITALS: BP 126/66; TEMP 98.8
== END 2019-08-09 14:17 | disposition home or self-care (01) ==
LOC: ONC/OP 12:13
PROVIDERS: ATTEND Internal Medicine Hematology & Oncology
DX: Z51.11 Encounter for antineoplastic chemotherapy (principal); C34.31 Malignant neoplasm of lower lobe, right bronchus or lung
CPT/HCPCS: 96375; 96413; J1100; J7050; J9267

== ENCOUNTER 2019-08-16 11:48 | Day surgery (SDC) | payer OTHER ==
[2019-08-16 12:49] VITALS: BP 109/58; TEMP 99
== END 2019-08-16 14:10 | disposition home or self-care (01) ==
LOC: ONC/OP 11:48
PROVIDERS: ATTEND Internal Medicine Hematology & Oncology
DX: Z51.11 Encounter for antineoplastic chemotherapy (principal); C34.31 Malignant neoplasm of lower lobe, right bronchus or lung
CPT/HCPCS: 96375; 96413; J1100; J7050; J9267

== ENCOUNTER 2019-08-23 09:43 | Day surgery (SDC) | payer OTHER ==
[2019-08-23] MEDS ORDERED: Sodium Chloride 0.9% 20 ML ONE (09:54)
[2019-08-23 10:42] VITALS: BP 100/57; TEMP 98.9
== END 2019-08-23 12:23 | disposition home or self-care (01) ==
LOC: ONC/OP 09:43
PROVIDERS: ATTEND Internal Medicine Hematology & Oncology
DX: Z51.11 Encounter for antineoplastic chemotherapy (principal); C34.31 Malignant neoplasm of lower lobe, right bronchus or lung
CPT/HCPCS: 36415; 80053; 82248; 83615; 84100; 84550; 96375; 96413; J1100; J1642; J7050; J9267

== ENCOUNTER 2019-09-06 11:03 | Day surgery (SDC) | payer OTHER ==
[~2019-09-06 11:03] MED LIST changes: +Dexamethasone 4 MG in Sodium Chloride 0.9% 50 ML SLOW IVP SCH; +Dexamethasone 4 mg/ml Vial SLOW IVP SCH
[2019-09-06] MEDS ORDERED: Sodium Chloride 0.9% 30 ML ONE (11:44)
[2019-09-06 12:21] VITALS: BP 124/64; TEMP 98.9
== END 2019-09-06 13:50 | disposition home or self-care (01) ==
LOC: ONC/OP 11:03
PROVIDERS: ATTEND Internal Medicine Hematology & Oncology
DX: Z51.11 Encounter for antineoplastic chemotherapy (principal); C34.31 Malignant neoplasm of lower lobe, right bronchus or lung
CPT/HCPCS: 96375; 96413; J1100; J7050; J9267

== ENCOUNTER 2019-09-08 08:30 | Day surgery (SDC) | payer OTHER ==
[2019-09-08] MEDS ORDERED: Prevnar 13-Val Conj/PF 0.5 ML SYRINGE IM ONE (09:00)
--- NOTE | 2019-09-08 09:23 | ULT ---
Exam: Bilateral renal ultrasound HISTORY: Patient is a right-sided nephrostomy. Evaluate for hydronephrosis. COMPARISON: None FINDINGS: Right kidney: Normal cortical echotexture. Moderate hydronephrosis. Renal cortex measures 2.0 cm. Exo phytic right cortical cysts measuring 5.6 x 4.2 x 3.5 cm Right kidney measurements: 13.7 x 5.9 x 6.5 cm. Left kidney: Normal cortical echotexture. Mild hydronephrosis. Renal cortex measures 1.4 cm. Left kidney measurements 11.1 x 8.4 x 6.3 cm. Urinary bladder: Normal mucosa. IMPRESSION: 1. Mild left-sided hydronephrosis 2. Moderate right-sided hydronephrosis.
--- NOTE | 2019-09-08 10:19 | SPC ---
RIGHT NEPHROSTOMY TUBE EXCHANGE WITH FLUOROSCOPY: COMPARISON: 06/29/2019 EXPOSURE: 0.5 minutes 15,630 mGy/cm2 FINDINGS: Successful right nephrostomy tube exchange. An 8 [place] right nephrostomy tube was exchanged for a ne w 8 [place] nephrostomy tube. Contrast was administered and demonstrates the catheter to be coiled in the intrarenal collecting system. TECHNIQUE: Consent obtained to perform a right nephrostomy tube exchange. The patient was prepped and draped in a sterile fashion. There appeared to be debris clogging the distal aspect of the nephrostomy tube. The stiff end of an Amplatz wire was used to break up the debris. After the degree was broken up the re was free flow of slightly cloudy urine from the hub of the catheter. Using the Amplatz wire the catheter was exchanged for a new 8 [place] nephrostomy. The nephrostomy was sutured to the patient and 1% lidocaine was used for local anesthesia. The patient tolerated the procedure well. No immediate post procedure complications. IMPRESSION: Successful right nephrostomy tube exchange. Note, there was debris clogging up the distal aspect of t he tube. Consider giving the patient flush instructions. CODE T Transcribed Date/Time: 09/08/2019 10:39 AM
[2019-09-08 10:36] VITALS: BMI 31.3
--- NOTE | 2019-09-10 16:05 | SPC ---
RIGHT NEPHROSTOMY TUBE EXCHANGE WITH FLUOROSCOPY: COMPARISON: 06/29/2019 EXPOSURE: 0.5 minutes 15,630 mGy/cm2 FINDINGS: Successful right nephrostomy tube exchange. An 8 [place] right nephrostomy tube was exchanged for a ne w 8 [place] nephrostomy tube. Contrast was administered and demonstrates the catheter to be coiled in the intrarenal collecting system. TECHNIQUE: Consent obtained to perform a right nephrostomy tube exchange. The patient was prepped and draped in a sterile fashion. There appeared to be debris clogging the distal aspect of the nephrostomy tube. The stiff end of an Amplatz wire was used to break up the debris. After the degree was broken up the re was free flow of slightly cloudy urine from the hub of the catheter. Using the Amplatz wire the catheter was exchanged for a new 8 [place] nephrostomy. The nephrostomy was sutured to the patient and 1% lidocaine was used for local anesthesia. The patient tolerated the procedure well. No immediate post procedure complications. IMPRESSION: Successful right nephrostomy tube exchange. Note, there was debris clogging up the distal aspect of t he tube. Consider giving the patient flush instructions. CODE T
== END 2019-09-08 10:00 | disposition home or self-care (01) ==
LOC: ULT 08:30
PROVIDERS: ATTEND Urology
PROC: 0T25X0Z Change Drainage Device in Kidney, External Approach (ICD-10-PCS; principal; 2019-09-08)
DX: C7B.8 Other secondary neuroendocrine tumors (principal); C7A.8 Other malignant neuroendocrine tumors; N13.39 Other hydronephrosis; E11.9 Type 2 diabetes mellitus without complications; I10 Essential (primary) hypertension; Z79.84 Long term (current) use of oral hypoglycemic drugs; Z79.899 Other long term (current) drug therapy
CPT/HCPCS: 50431; 50436; 75984; 76770

== ENCOUNTER 2019-09-13 11:08 | Day surgery (SDC) | payer OTHER ==
[~2019-09-13 11:08] MED LIST changes: -Dexamethasone 4 MG in Sodium Chloride 0.9% 50 ML SLOW IVP SCH
[2019-09-13] MEDS ORDERED: Sodium Chloride 0.9% 20 ML ONE (11:33)
[2019-09-13 11:51] VITALS: BP 95/50; TEMP 98.1
== END 2019-09-13 13:39 | disposition home or self-care (01) ==
LOC: ONC/OP 11:08
PROVIDERS: ATTEND Internal Medicine Hematology & Oncology
DX: Z51.11 Encounter for antineoplastic chemotherapy (principal); C34.31 Malignant neoplasm of lower lobe, right bronchus or lung
CPT/HCPCS: 96375; 96413; J1100; J7050; J9267

== ENCOUNTER 2019-09-20 15:23 | Day surgery (SDC) | payer OTHER ==
[~2019-09-20 15:23] MED LIST changes: +Dexamethasone 4 MG in Sodium Chloride 0.9% 50 ML IVPB SCH; -Dexamethasone 4 mg/ml Vial SLOW IVP SCH
[2019-09-20 16:01] VITALS: BP 108/58; TEMP 97.8
== END 2019-09-20 17:02 | disposition home or self-care (01) ==
LOC: ONC/OP 15:23
PROVIDERS: ATTEND Internal Medicine Hematology & Oncology
DX: Z51.11 Encounter for antineoplastic chemotherapy (principal); C34.31 Malignant neoplasm of lower lobe, right bronchus or lung
CPT/HCPCS: 80053; 82248; 83615; 84100; 84550; 96375; 96413; J1100; J7050; J9267

== ENCOUNTER 2019-09-30 09:22 | Outpatient (CLI) | payer SELFPAY ==
--- NOTE | 2019-09-30 13:36 | CT ---
CT ABDOMEN WITH CONTRAST CT PELVIS WITH CONTRAST: DATE: 09/30/2019. HISTORY: A 44-year-old male with malignant neoplasm of lower lobe, right bronchus or lung; pelvic mass; and l iver and lung metastases. Please compare with scan in June 2019. COMPARISON: 07/27/2019 TECHNIQUE: IV injection of iodinated contrast media: Isovue 370. Oral contrast media: administered. FINDINGS: The cavitary lesion at the medial basilar segment of the right lower lobe has much thinner soft tissu e rim now compared to the previous. The overall dimensions of the cavity have not significantly church ged, currently measuring approximately 2.5 x 2.5 cm. No pleural effusion. No pneumoperitoneum or ascites. Multiple hepatic ill-defined low-attenuation lesions are again noted, consistent with metastases. Th e largest one, located at hepatic segment 7 in the right lobe, measures approximately 5 x 3 x 3 cm, a nd has not significantly changed. Slightly medial and inferior to this, the previously demonstrated approximately 0.8 cm small lesion i n the right lobe is currently not visible on this CT. The reason for nonvisualization could be due to slight differences in timing of the venous phase scan between the 2 studies. At the posterior inferior aspect of the right lobe in hepatic segment 6, there was a lesion that was previously approximately 1.5 cm. It currently measures approximately 2 cm. Previous 0.7 cm lesion in hepatic segment 4B of the left lobe is now more faint and subtle, but appea rs larger, approximately 2 x 2 cm. There is an apparently new small 1 x 1.5 cm lesion in the right lobe more medially and inferiorly jorge luis r the junction between hepatic segments 5 and 6. No adrenal mass. Right-sided percutaneous nephrostomy tube remains. Again noted is the moderately l arge exophytic cyst arising from lower pole of right kidney. Pancreas, spleen, and abdominal aorta a re normal. No small bowel dilation. No colonic diverticulitis. 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 It has grown. The right side of the idanai or is now approximately 12 x 8 x 17 cm. There is a greater degree of extension and destruction throu ghout almost the entire sacrum now. S1 is the least affected. The rest of the sacrum is almost tota lly destroyed. There is new extension far into the left with tumor component in the left sciatic not ch now which measures 4 x 4 x 3.5 cm. The central sacral component of the tumor measures approximate ly 12 x 7 x 10.5 cm. This is contiguous with the tumor component that completely envelopes the right common iliac and internal iliac blood vessels, and severely anteriorly displaces the right external iliac blood vessels, and extends up to the aortic bifurcation. There is no hydronephrosis of the right kidney. There is mild dilation of the left renal collecting system, no worse than it was on 07/27/2019, and perhaps slightly improved. The urinary bladder is muc h smaller in volume during the current scan than on the previous. There is a new finding of severe d iffuse circumferential mural thickening of the urinary bladder. The tumor mass displaces the urinary bladder anteriorly, and broadly abuts its right side. There is a somewhat greater degree of bone de struction involving the right posterior acetabulum. 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 IMPRESSION: 1. Significant interval growth of the large right intrapelvic tumor mass, now causing a greater degr ee of severe destruction of the sacrum, and now extending into the contralateral left sciatic notch. 2. Overall interval worsening of hepatic metastatic disease. 3. Interval thinning of the soft tissue density rim of the cavitary lung lesion at the medial basila r segment of the right lower lobe. 4. Diffuse severe mural thickening of the urinary bladder. JN R POS: TPC
== END 2019-09-30 09:23 | disposition home or self-care (01) ==
LOC: BICCT 09:22
PROVIDERS: ATTEND Internal Medicine Hematology & Oncology
DX: C34.31 Malignant neoplasm of lower lobe, right bronchus or lung (principal); C78.7 Secondary malignant neoplasm of liver and intrahepatic bile duct; N32.89 Other specified disorders of bladder; R19.00 Intra-abdominal and pelvic swelling, mass and lump, unspecified site
CPT/HCPCS: 74177